=== PATIENT | male | born 1960 | race Caucasian/White ===

== ENCOUNTER 2020-06-12 06:45 | Observation (INO) ==
--- OUTSIDE RECORDS SUMMARY | 2020-06-12 06:47 | External Medical Summary | Continuity of Care Document ---
:1960 Author Name Wes Moss Address Unavailable Unavailable , Care Team Providers Name Role Phone Miky Moss Unavailable [email or web address] Luis ADAMS Unavailable Unavailable Unavailable Unavailable Unavailable Assessments Assessed Problems:Inguinal hernia Problems Inguinal hernia (550.90) (K40.90) Diabetes mellitus (250.00) (E11.9) Hypercholesterolemia (272.0) (E78.00) Allergies and Adverse Reactions Shellfish-derived Products (Allergy) Medications Aspirin 81 MG TABS; TAKE 1 TABLET DAILY. Start: 27-Jan-2013 Refills: 0 metFORMIN HCl ER (OSM) 500 MG Oral Table t Extended Release 24 Hour; TAKE 1 TABLET DAILY. Start: 27-Jan-2013 Refills: 0 Lipitor 10 MG Oral Tablet; TAKE 1 TABLET DAILY. Start: 27-Jan-2013 Refills: 0 Procedures History of Leg Repair Status: Completed History of Surgery Vas Deferens Vasectomy Status: Completed Immunizations Immunizations not documented Family History Unknown Family Member Family history of Hypertension (V17.49) Status: Active Comments: Family History Family history of Colon Cancer (V16.0) Status: Active C omments: Family History Family history of Cancer Status: Active Comments: Famil y History Family history of Diabetes Mellitus (V18.0) Status: Active Comments: Family History Social History - Smoking Status Never smoked tobacco Interventions Discussion/SummaryPost-opereative inguinal hernia(s). Doing well, no problems reported and the patient is satisifed. Follow up will be prn. Plan of Treatment Planned Observations Planned Goals not documented Results No Known Results Results not documented Encounters Appointment; Adrian Bolaños M.D. 17-Feb-2013 13:30 Encounter Diagnosis: Problem not documented
--- OUTSIDE RECORDS SUMMARY | 2020-06-12 06:48 | External Medical Summary | Continuity of Care Document ---
:1960 Author Name Wes Moss Address Unavailable Unavailable , Care Team Providers Name Role Phone Miky Moss [place]available [email or web address] [place] Unavailable Unavailable Unavailable Unavailable Unavailable Assessments Assessed Problems:Inguinal hernia Problems Inguinal hernia (550.90) (K40.90) Diabetes mellitus (250.00) (E11.9) Hypercholesterolemia (272.0) (E78.00) Allergies and Adverse Reactions Shellfish-derived Products (Allergy) Medications Lipitor 10 MG Oral Tablet; TAKE 1 TABLET DAILY. Start: 27-Jan-2013 Refills: 0 metFORMIN HCl ER (OSM) 500 MG Oral Table t Extended Release 24 Hour; TAKE 1 TABLET DAILY. Start: 27-Jan-2013 Refills: 0 Aspirin 81 MG TABS; TAKE 1 TABLET DAILY. Start: 27-Jan-2013 Refills: 0 Procedures History of Leg Repair Status: Completed History of Surgery Vas Deferens Vasectomy Status: Completed Immunizations Immunizations not documented Family History Unknown Family Member Family history of Diabetes Mellitus (V18.0) Status: Active Comments: Family History Family history of Cancer Status: Active Comments: Famil y History Family history of Colon Cancer (V16.0) Status: Active C omments: Family History Family history of Hypertension (V17.49) Status: Active Comments: Family History Social History [...]
[2020-06-12 07:25] LABS: Basophils # (auto) 0.01 K/uL (0-0.2); Basophils % (auto) 0.2 %; Eosinophils # (auto) 0.17 K/uL (0-0.5); Eosinophils % (auto) 2.8 %; Hematocrit (blood only) 45.3 % (42-52); Hemoglobin 14.8 g/dL (14.0-18.0); Lymphocytes % (auto) 25.1 %; Mean Corpuscular Hemoglobin 27.3 pg (25-34); Mean Corpuscular Hgb Conc 32.7 g/dL (32-36); Mean Corpuscular Volume 83.4 fL (80-100); Mean Platelet Volume 9.5 fL (7.4-10.4); Monocytes # (auto) 0.71 K/uL (0.11-0.59); Monocytes % (auto) 11.9 %; Neutrophils # (auto) 3.58 K/uL (1.4-6.5); Platelet Count 273 K/uL (130-400); RDW Coefficient of Variation 15.1 % (11.5-14.5); RDW Standard Deviation 46.3 fL (36.4-46.3); Red Blood Count 5.43 M/uL (4.7-6.1); White Blood Count 5.97 K/uL (4.8-10.8)
[2020-06-12] MEDS ORDERED: NITROGLYCERIN SL 0.4 MG/TAB TAB SL STA ×2 (07:26→08:36)
[2020-06-12] MEDS ORDERED: ASPIRIN 81 MG CHEW PO STA (07:26)
[2020-06-12] MEDS ORDERED: SODIUM CHLORIDE 0.9% 250 ML IV ONE (07:26)
--- NOTE | 2020-06-12 07:30 | XRay Report ---
SINGLE VIEW CHEST CLINICAL HISTORY: Atypical chest pain. FINDINGS: An AP, portable, upright chest radiograph is obtained. No prior studies are available for c omparison at the time of dictation. The heart is enlarged. The pulmonary vasculature is noncongested. Mild atelectasis is noted at the lung bases. No airspace consolidation or large pleural effusion is identified. No pneumothorax is seen. The bony thorax is grossly intact. IMPRESSION: Cardiac enlargement with no acute cardiopulmonary abnormality. ACT 112: Negative or not required by law. Electronically signed by: Tj Tavera M.D. 06/12/2020 7:29 AM
--- NOTE | 2020-06-12 07:36 | Emergency Department Note ---
History of Present Illness General Chief complaint: Chest Pain Stated complaint: CHEST PAIN,NUMBNESS IN LEFT ARM Time Seen by Provider: 06/12/20 07:09 Source: patient and family ( was at the bedside) Mode of arrival: ambulatory Limitations: no limitations History of Present Illness Maximum Pain Intensity: 6 This patient comes in complaining of chest pain that started overnight. It woke him up and he woke up this morning and still had it. Its central dull 4 out of 10. He did notice it hurt when he coughed but he is not been coughing much no fever chills no shortness of breath. His left arm felt slightly heavy at one point. Denies headache. He is not on any blood thinners he did take a baby aspirin 81 mg prior to arrival. He does a history of GERD but feels different he has had some belching and burping did take an antacid. No history of similar complaints. No known exposure to Covid. Home Medications Medication Instructions Recorded Confirmed Type empagliflozin [Jardiance] 10 mg PO DAILY 06/12/20 06/12/20 History omeprazole 20 mg PO DAILY 06/12/20 06/12/20 History oxybutynin chloride 10 mg PO DAILY 06/12/20 06/12/20 History rosuvastatin 5 mg PO DAILY 06/12/20 06/12/20 History tamsulosin 0.4 mg PO DAILY 06/12/20 06/12/20 History Allergies Allergy/AdvReac Type Severity Reaction Status Date / Time rofecoxib Allergy Intermediate Hives Verified 06/12/20 06:56 azithromycin Allergy Unknown unsure Verified 06/12/20 06:56 shrimp Allergy Unknown SEAFOOD = Verified 06/12/20 06:56 HIVES Past Med/Surg History Medical History BPH (benign prostatic hyperplasia) Dyslipidemia GERD (gastroesophageal reflux disease) Type 2 diabetes mellitus Surgical History History of laparoscopic cholecystectomy History of prostate biopsy History of vasectomy Family History Father Heart disease [place] x 5 Grandmother (Paternal) Heart disease Mother Cancer Social History Smoking Status: Never smoker Second Hand Exposure: Yes; Do You Dip or Chew Tobacco: No; Hx Alcohol Use: No Hx Substance Use: No Preferred Language: [place] Communication Ability: Effective Data Communications Software Consultant Required: No Beliefs That Will Affect Care: None Current Living Situation: Spouse current occupational status: employed current occupation: delivery supervisor at [employer] Feels Safe at Home: Yes Review of Systems A total of 10 systems reviewed and were otherwise negative Physical Exam Vital Signs Vital Signs - 24 hr 06/12/20 06:48 06/12/20 07:16 06/12/20 07:40 Temperature 36.1 C L Temperature Source Temporal Artery Scan Pulse Rate 71 93 H Pulse Rate from SpO2 Sensor 93 H Respiratory Rate 16 18 Respiratory Effort / Characteristics Non-Labored Spontaneous Respiratory Depth Normal Respiratory Pattern Regular Blood Pressure 146/102 H 135/86 Blood Pressure Mean 116 102 Blood Pressure Position Sitting Pulse Oximetry 100 97 93 Oxygen Delivery Method Room Air Room Air Sepsis Recent Fever Within 48 Hours No Sepsis New/Unexplained Change in Mental Status No Sepsis Action Taken by Nursing No Action Required 06/12/20 07:41 06/12/20 07:50 06/12/20 08:00 Temperature Temperature Source Pulse Rate 91 H 85 79 Pulse Rate from SpO2 Sensor 89 76 63 Respiratory Rate 14 19 18 Respiratory Effort / Characteristics Respiratory Depth Respiratory Pattern Blood Pressure 142/109 H 128/86 Blood Pressure Mean 120 100 Blood Pressure Position Pulse Oximetry 94 96 96 Oxygen Delivery Method Sepsis Recent Fever Within 48 Hours Sepsis New/Unexplained Change in Mental Status Sepsis Action Taken by Nursing 06/12/20 08:15 06/12/20 08:30 06/12/20 08:42 Temperature Temperature Source Pulse Rate 74 79 Pulse Rate from SpO2 Sensor 72 70 Respiratory Rate 18 20 Respiratory Effort / Characteristics Spontaneous Respiratory Depth Respiratory Pattern Blood Pressure 117/87 121/84 Blood Pressure Mean 97 96 Blood Pressure Position Pulse Oximetry 96 97 Oxygen Delivery Method Sepsis Recent Fever Within 48 Hours Sepsis New/Unexplained Change in Mental Status Sepsis Action Taken by Nursing 06/12/20 08:45 06/12/20 09:00 06/12/20 09:15 Temperature Temperature Source Pulse Rate 83 70 80 Pulse Rate from SpO2 Sensor 72 72 66 Respiratory Rate 18 18 18 Respiratory Effort / Characteristics Respiratory Depth Respiratory Pattern Blood Pressure 107/83 118/84 104/76 Blood Pressure Mean 91 95 85 Blood Pressure Position Pulse Oximetry 96 95 98 Oxygen Delivery Method Sepsis Recent Fever Within 48 Hours Sepsis New/Unexplained Change in Mental Status Sepsis Action Taken by Nursing 06/12/20 09:30 Temperature Temperature Source Pulse Rate 71 Pulse Rate from SpO2 Sensor 63 Respiratory Rate 19 Respiratory Effort / Characteristics Respiratory Depth Respiratory Pattern Blood Pressure 114/78 Blood Pressure Mean 90 Blood Pressure Position Pulse Oximetry 98 Oxygen Delivery Method Sepsis Recent Fever Within 48 Hours Sepsis New/Unexplained Change in Mental Status Sepsis Action Taken by Nursing General: Well developed well nourished middle-age male who in no acute distress, breathing comfortably on room air. Normal speech HEENT: Normal cephalic atraumatic. Pupils are equal round and reactive to light. Extraocular movements are intact. Oropharynx is pink with moist mucous membranes. No swelling of the mouth lips or tongue. Neck: Supple with a midline trachea. No meningeal signs or stiffness, no JVD or bruits. No Stridor. Chest: Clear to auscultation bilaterally. No wheezes or rhonchi. No increased work of breathing. Heart: Regular rate and rhythm without murmurs or gallops. Abdomen: Soft nontender, nondistended without rebound guarding or rigidity. Extremities: No cyanosis clubbing or edema. No calf tenderness or assymetry Spine/Back. Non tender to palpation. No CVA tenderness Skin: Good turgor without rashes. Neurologic exam: Cranial nerves two through 12 are intact. Motor and sensation are intact and symmetrical throughout. My computer was not working Course Administered Medications Insulin Aspart (Insulin Aspart 100 Units/Ml 3 Ml Pen) 0 units SC ACHS LEMUEL Stop: 07/12/20 12:14 Last Admin: 06/12/20 12:52 Dose: Not Given Documented by: [id number] Cosigned by: [id number] Discontinued Medications Aspirin (Aspirin 81 Mg Chew) 324 mg PO NOW STA Stop: 06/12/20 07:27 Last Admin: 06/12/20 07:38 Dose: 324 mg Documented by: [id number] Sodium Chloride (Nss) 250 mls @ 999 mls/hr IV .Q16M ONE Stop: 06/12/20 07:41 Last Infusion: 06/12/20 08:08 Dose: 0 mls/hr Documented by: [id number] Admin: 06/12/20 07:38 Dose: 999 mls/hr Documented by: [id number] Metoprolol Tartrate (Metoprolol Tartrate 25 Mg Tab) 25 mg PO NOW ONE Stop: 06/12/20 12:25 Last Admin: 06/12/20 12:51 Dose: 25 mg Documented by: [id number] Nitroglycerin (Nitroglycerin Sl 0.4 Mg/Tab Tab) 0.4 mg SL NOW STA Stop: 06/12/20 07:27 Last Admin: 06/12/20 07:38 Dose: 0.4 mg Documented by: [id number] Nitroglycerin (Nitroglycerin Sl 0.4 Mg/Tab Tab) 0.4 mg SL NOW STA Stop: 06/12/20 08:37 Last Admin: 06/12/20 08:45 Dose: 0.4 mg Documented by: [id number] Medical Decision Making Differential Diagnosis Acute coronary syndrome, arrhythmia, GERD, PE, CHF, infection, electrolyte or metabolic abnormality, aortic disease Medical Records Attestation: I reviewed the patient's medical records. Home Medications Current Medication List: was personally reviewed by me Laboratory Data Attestation: I reviewed the patient's lab results. Result diagrams: 06/12/20 07:09 06/12/20 07:09 Lab Results 06/12/20 06/12/20 06/12/20 Range/Units 07:09 07:09 07:09 WBC 5.97 (4.8-10.8) K/uL RBC 5.43 (4.7-6.1) M/uL Hgb 14.8 (14.0-18.0) g/dL Hct 45.3 (42-52) % MCV 83.4 (80-100) fL MCH 27.3 (25-34) pg MCHC 32.7 (32-36) g/dL RDW Std Deviation 46.3 (36.4-46.3) fL RDW Coeff of Silvano 15.1 H (11.5-14.5) % Plt Count 273 (130-400) K/uL MPV 9.5 (7.4-10.4) fL Immature Gran % (Auto) 0.0 % Neut % (Auto) 60.0 % Lymph % (Auto) 25.1 % [place] % (Auto) 11.9 % Eos % (Auto) 2.8 % Baso % (Auto) 0.2 % Neut # (Auto) 3.58 (1.4-6.5) K/uL Lymph # (Auto) 1.50 (1.2-3.4) K/uL [place] # (Auto) 0.71 H (0.11-0.59) K/uL Eos # (Auto) 0.17 (0-0.5) K/uL Baso # (Auto) 0.01 (0-0.2) K/uL Immature Gran # (Auto) 0.00 (0.00-0.02) K/uL PT (9.0-12.0) Seconds INR (0.9-1.1) APTT (21.0-31.0) Seconds PTT Ratio Sodium 140 (136-145) mmol/L Potassium 3.8 (3.5-5.1) mmol/L Chloride 108 H (98-107) mmol/L Carbon Dioxide 28 (21-32) mmol/L Anion Gap 4.0 (3-11) BUN 19 H (7-18) mg/dl Creatinine 1.19 (0.6-1.4) mg/dl Est Cr Clr Drug Dosing 84.2 ml/min Est GFR ( Amer) 76.0 Est GFR (Non-Af Amer) 65.5 BUN/Creatinine Ratio 15.7 (10-20) Glucose 118 H (70-99) mg/dl Calcium 8.5 (8.5-10.1) mg/dl Total Bilirubin 0.5 (0.2-1) mg/dl AST 13 L (15-37) U/L ALT 31 (12-78) U/L Alkaline Phosphatase 55 (45-117) U/L Troponin I < 0.015 (0-0.045) ng/ml Total Protein 8.2 (6.4-8.2) gm/dl Albumin 3.7 (3.4-5.0) gm/dl Globulin 4.5 H (2.5-4.0) gm/dl Albumin/Globulin Ratio 0.8 L (0.9-2) Lipase 122 (73-393) U/L Hepatitis C Ab Screen Neg (Neg) 06/12/20 Range/Units 07:44 WBC (4.8-10.8) K/uL RBC (4.7-6.1) M/uL Hgb (14.0-18.0) g/dL Hct (42-52) % MCV (80-100) fL MCH (25-34) pg MCHC (32-36) g/dL RDW Std Deviation (36.4-46.3) fL RDW Coeff of Silvano (11.5-14.5) % Plt Count (130-400) K/uL MPV (7.4-10.4) fL Immature Gran % (Auto) % Neut % (Auto) % Lymph % (Auto) % [place] % (Auto) % Eos % (Auto) % Baso % (Auto) % Neut # (Auto) (1.4-6.5) K/uL Lymph # (Auto) (1.2-3.4) K/uL [place] # (Auto) (0.11-0.59) K/uL Eos # (Auto) (0-0.5) K/uL Baso # (Auto) (0-0.2) K/uL Immature Gran # (Auto) (0.00-0.02) K/uL PT 10.3 (9.0-12.0) Seconds INR 1.0 (0.9-1.1) APTT 26.2 (21.0-31.0) Seconds PTT Ratio 1.0 Sodium (136-145) mmol/L Potassium (3.5-5.1) mmol/L Chloride (98-107) mmol/L Carbon Dioxide (21-32) mmol/L Anion Gap (3-11) BUN (7-18) mg/dl Creatinine (0.6-1.4) mg/dl Est Cr Clr Drug Dosing ml/min Est GFR ( Amer) Est GFR (Non-Af Amer) BUN/Creatinine Ratio (10-20) Glucose (70-99) mg/dl Calcium (8.5-10.1) mg/dl Total Bilirubin (0.2-1) mg/dl AST (15-37) U/L ALT (12-78) U/L Alkaline Phosphatase (45-117) U/L Troponin I (0-0.045) ng/ml Total Protein (6.4-8.2) gm/dl Albumin (3.4-5.0) gm/dl Globulin (2.5-4.0) gm/dl Albumin/Globulin Ratio (0.9-2) Lipase (73-393) U/L Hepatitis C Ab Screen (Neg) Imaging Data Attestation: I personally reviewed and interpreted this imaging study as follows: My Impression: Chest x-rayno acute infiltrate, failure, pneumothorax ECG Data Attestation: I personally reviewed and interpreted this ECG as follows: Indication: + chest pain Rate (beats per minute): 75 Rhythm: + normal sinus ECG Intervals/blocks: + Normal QRS, + Normal QT and + Normal MO ECG [place]: + Normal ECG ST segments: + Nonspecific ST abnormalities (Nonspecific T wave abnormality) ECG Findings: + PVCs; no PACs Comparison ECG Date: from (01/28/2013) Change: no significant change Additional Comments: EKG #2normal sinus rhythm at 79. PVCs. No acute ischemic changes. No significant change compared to EKG #1 MDM Narrative This patient comes in as described above. He is been having some chest pain. I V asked established EKG was obtained is placed on a certified coatings inspector in room C9. He was given aspirin 324 mg chewable we did try a nitroglycerin sublingual. Chest x-ray was obtained and shows no acute infiltrate, failure, pneumothorax. EKG is some nonspecific findings but no definite acute STEMI. He was given nitroglycerin sublingual as pain went from 4-1. Was given a second sublingual as pain went away completely. EKG x2 do not show an acute STEMI or any definite or dynamic changes. Chest x-ray does not show congestive heart failure, pneumonia,or pneumothorax. Troponin is not elevated. Is no acute electrolyte or metabolic abnormalities. He does have significant cardiac risk factors, including family history and I do think he needs to be admitted/observed for further cardiac work-up and evaluation. [facility] Continuous cardiac monitoring: Order was placed in EMR for continuous cardiac monitoring. The patient was noted to be in normal sinus rhythm with a pulse of 70 Impression & Plan Chest pain, Type 2 diabetes mellitus, Family history of coronary artery di sease, Lab test negative for COVID-19 virus Discharge Plan Visit Data Chief Complaint: Chest Pain Stated Complaint: CHEST PAIN,NUMBNESS IN LEFT ARM ED Provider: Oswaldo Pierson Discharge Problem: Chest pain, Type 2 diabetes mellitus, Family history of coronary artery disease, Lab test negative for COVID-19 virus Patient Disposition: Admitted As Inpatient Discharge Instructions Interventions: ED Discharge Assessment Last Done: 06/12/20 11:25 Discharge Problem: Chest pain Qualifiers: Chest pain type: precordial pain Qualified Code(s): R07.2 - Precordial pain Type 2 diabetes mellitus Qualifiers: Diabetes mellitus long term care phlebotomist insulin use: without long term care phlebotomist use Diabetes mellitus complication status: without complication Qualified Code(s): E11.9 - Type 2 diabetes mellitus without complications
[2020-06-12 07:42] LABS: Alanine Aminotransferase 31 U/L (12-78); Albumin Level 3.7 gm/dl (3.4-5.0); Aspartate Aminotransferase 13 U/L (15-37); BUN Creatinine Ratio 15.7 (10-20); Blood Urea Nitrogen 19 mg/dl (7-18); Calcium 8.5 mg/dl (8.5-10.1); Carbon Dioxide 28 mmol/L (21-32); Chloride 108 mmol/L (98-107); Creatinine Clr Calc Pharmacy 84.2 ml/min; Est GFR (Non-African American) 65.5; Glucose 118 mg/dl (70-99); Lipase 122 U/L (73-393); Potassium 3.8 mmol/L (3.5-5.1); Sodium 140 mmol/L (136-145)
[2020-06-12 07:47] LABS: Albumin Globulin Ratio 0.8 (0.9-2); Alkaline Phosphatase 55 U/L (45-117); Bilirubin,Total 0.5 mg/dl (0.2-1); Globulin 4.5 gm/dl (2.5-4.0); Total Protein 8.2 gm/dl (6.4-8.2); Troponin I < 0.015 ng/ml (0-0.045)
[2020-06-12 08:04] LABS: Partial Thromboplastin Time 26.2 Seconds (21.0-31.0); Prothrombin Time 10.3 Seconds (9.0-12.0)
--- NOTE | 2020-06-12 10:18 | History & Physical Report ---
Date of Service June 12, 2020 Assessment & Plan (1) Chest pain: Multiple risk factors for cardiac disease including family history, dyslipidemia and DM. Evolution of symptoms concerning for cardiac etiology - Spoke with cardiology - plan for cardiac cath later today - Trend troponin - Monitor on telemetry - Check ECHO - Continue prn nitro for chest pain - Repeat EKG if recurrent chest pain (2) Type 2 diabetes mellitus: - Hold oral meds - Insulin sliding scale - Check A1c in the AM - Diabetic diet once able to eat (3) GERD (gastroesophageal reflux disease): - Continue PPI therapy (4) BPH (benign prostatic hyperplasia): - Continue outpatient meds (5) Dyslipidemia: - Check lipid panel in AM - Increase Crestor to 10 mg daily - pt reports this has been discussed multiple times with PCP in the past but he has been unable to get an updated script. Pt seen and reviewed with collaborating physician, Dr. Rasmussen. Plan of care discussed and as outlined above. Code status: full code Tino Shaikh PA-C History of Present Illness Chief Complaint: Chest pain Primary Care Provider: Mahad Perez DO This is a 59 y/o male with PMH of dyslipidemia, GERD, BPH, and DM2 who presents to the ED with chest pain that started this morning. Pt reports feeling in his usual state of health last evening. At some point last night, he thinks that he woke up and noticed some chest discomfort but immediately fell back asleep so he is unsure of any other details. This morning he woke up around 5 am (his usual) and noted that he was having dull substernal chest pain without radiation. Associated pallor. Also noted some mild indigestion but took his omeprazole and felt better but the chest pain continued. This pain is different than prior episodes of GERD. In 1982, he reports that he had similar pain but it was attributed to stress. He did have a stress test in 2016 that was negative - thinks this was done prior to cholecystectomy. In the are on the way to the ED, he noted numbness in his left arm that has since resolved. He denies associated N/V, palpitations, dizziness, diaphoresis, shortness of breath or syncope. He received nitro x 2 doses in the ED with resolution of pain at present. He does note that he has now developed a LEDESMA. Exercise Echo 05/04/15 - negative for inducible ischemia, no arrhythmias. Normal HR and BP response to exercise. Average exercise tolerance. at rest, normal LV chamber size with mild concentric LVH. Normal LV systolic function without regional wall motion abnormality, EF 60-65%. Grade I diastolic dysfunction. No significant valvular pathology. Allergies Allergy/AdvReac Type Severity Reaction Status Date / Time rofecoxib Allergy Intermediate Hives Verified 06/12/20 06:56 azithromycin Allergy Unknown unsure Verified 06/12/20 06:56 shrimp Allergy Unknown SEAFOOD = Verified 06/12/20 06:56 HIVES Home Medications Medication Instructions Recorded Confirmed Type empagliflozin [Jardiance] 10 mg PO DAILY 06/12/20 06/12/20 History omeprazole 20 mg PO DAILY 06/12/20 06/12/20 History oxybutynin chloride 10 mg PO DAILY 06/12/20 06/12/20 History rosuvastatin 5 mg PO DAILY 06/12/20 06/12/20 History tamsulosin 0.4 mg PO DAILY 06/12/20 06/12/20 History Past Med/Surg History Medical History BPH (benign prostatic hyperplasia) Dyslipidemia GERD (gastroesophageal reflux disease) Type 2 diabetes mellitus Surgical History History of laparoscopic cholecystectomy History of prostate biopsy History of vasectomy Family History Father Heart disease [place] x 5 Grandmother (Paternal) Heart disease Mother Cancer Social History Smoking Status: Never smoker Second Hand Exposure: Yes; Do You Dip or Chew Tobacco: No; Hx Alcohol Use: No Hx Substance Use: No Preferred Language: Nigerien Communication Ability: Effective Fresh Meat Grader Required: No Beliefs That Will Affect Care: None Current Living Situation: Spouse current occupational status: employed current occupation: music therapist at [employer] Feels Safe at Home: Yes Review of Systems Review of Systems: All systems reviewed & are unremarkable except as noted in HPI & below Constitutional: no fever, no chills, no anorexia, no weight loss and no weight gain Eyes: no diplopia and no worsening vision Ear, Nose, Mouth, Throat: no sore throat and no dysphagia Respiratory: no cough, no chest congestion, no dyspnea on exertion and no wheezing Cardiovascular: as per Subjective / HPI; no dyspnea on exertion, no palpitations, no lightheadedness, no syncope and no edema Gastrointestinal: as per Subjective / HPI; no abdominal pain, no nausea, no vomiting, no diarrhea/loose stools and no blood in stools Genitourinary: no dysuria, no urinary frequency and no hematuria Musculoskeletal: no back pain, no neck pain and no muscle weakness Integumentary: no skin ulcer Neurologic: no paresthesia, no tremor(s), no seizure-like activity and no headache(s) Psychiatric: no depression and no anxiety Physical Exam Constitutional: well developed and well nourished; no acute distress Eyes: + anicteric sclerae; no conjunctival abnormality Neck: trachea midline Respiratory: no respiratory distress and no labored breathing Auscultation: lungs clear to auscultation bilaterally; no rales, no rhonchi and no wheezes Cardiovascular: Rate/Rhythm: regular rate and regular rhythm (occasional ectopic beat) Heart Sounds: no gallop, no murmur and no cardiac rub Vessels: posterior tibial pulses present and radial pulses present; no carotid bruit Extremities: no calf tenderness and no edema Gastrointestinal (Abdomen): Inspection/Auscultation: normal bowel sounds; abdomen not distended Percussion/Palpation: abdomen soft; abdomen nontender Musculoskeletal: Head/Neck/Chest: normocephalic, head atraumatic and neck supple; no chest tenderness Extremities: no cyanosis and no clubbing Skin: no rashes, warm and dry no jaundice Neurologic: no focal motor deficits Motor/Sensory: no tremor Psychiatric: A+Ox3, euthymic affect Results & Data Results & Data ([facility]) Vital Signs (Past 12 Hours) Vital Signs Temp Pulse Resp BP Pulse Ox 06/12/20 09:45 72 18 131/81 99 06/12/20 09:30 71 19 114/78 98 06/12/20 09:15 80 18 104/76 98 06/12/20 09:00 70 18 118/84 95 06/12/20 08:45 83 18 107/83 96 06/12/20 08:30 79 20 121/84 97 06/12/20 08:15 74 18 117/87 96 06/12/20 08:00 79 18 128/86 96 06/12/20 07:50 85 19 142/109 H 96 06/12/20 07:41 91 H 14 94 06/12/20 07:40 93 H 18 135/86 93 06/12/20 07:16 97 06/12/20 06:48 36.1 C L 71 16 146/102 H 100 Laboratory Results Laboratory Results - last 24 hr 06/12/20 06/12/20 06/12/20 07:09 07:09 07:44 WBC 5.97 RBC 5.43 Hgb 14.8 Hct 45.3 MCV 83.4 MCH 27.3 MCHC 32.7 RDW Std Deviation 46.3 RDW Coeff of Silvano 15.1 H Plt Count 273 MPV 9.5 Immature Gran % (Auto) 0.0 Neut % (Auto) 60.0 Lymph % (Auto) 25.1 [place] % (Auto) 11.9 Eos % (Auto) 2.8 Baso % (Auto) 0.2 Neut # (Auto) 3.58 Lymph # (Auto) 1.50 [place] # (Auto) 0.71 H Eos # (Auto) 0.17 Baso # (Auto) 0.01 Immature Gran # (Auto) 0.00 PT 10.3 INR 1.0 APTT 26.2 PTT Ratio 1.0 Sodium 140 Potassium 3.8 Chloride 108 H Carbon Dioxide 28 Anion Gap 4.0 BUN 19 H Creatinine 1.19 Est Cr Clr Drug Dosing 84.2 Est GFR ( Amer) 76.0 Est GFR (Non-Af Amer) 65.5 BUN/Creatinine Ratio 15.7 Glucose 118 H Calcium 8.5 Total Bilirubin 0.5 AST 13 L ALT 31 Alkaline Phosphatase 55 Troponin I < 0.015 Total Protein 8.2 Albumin 3.7 Globulin 4.5 H Albumin/Globulin Ratio 0.8 L Lipase 122 COVID-19 Eval Order SARS-CoV-2, RNA, NAAT 06/12/20 06/12/20 09:48 09:48 WBC RBC Hgb Hct MCV MCH MCHC RDW Std Deviation RDW Coeff of Silvano Plt Count MPV Immature Gran % (Auto) Neut % (Auto) Lymph % (Auto) [place] % (Auto) Eos % (Auto) Baso % (Auto) Neut # (Auto) Lymph # (Auto) [place] # (Auto) Eos # (Auto) Baso # (Auto) Immature Gran # (Auto) PT INR APTT PTT Ratio Sodium Potassium Chloride Carbon Dioxide Anion Gap BUN Creatinine Est Cr Clr Drug Dosing Est GFR ( Amer) Est GFR (Non-Af Amer) BUN/Creatinine Ratio Glucose Calcium Total Bilirubin AST ALT Alkaline Phosphatase Troponin I Total Protein Albumin Globulin Albumin/Globulin Ratio Lipase COVID[facility]19 [facility] SARS-CoV-2, RNA, NAAT NEGATIVE Diagnostic Findings Chest X-ray 06/12/20 - IMPRESSION: Cardiac enlargement with no acute cardiopulmonary abnormality. Medications Administered Discontinued Medications Aspirin (Aspirin 81 Mg Chew) 324 mg PO NOW STA Stop: 06/12/20 07:27 Last Admin: 06/12/20 07:38 Dose: 324 mg Documented by: [id number] Sodium Chloride (Nss) 250 mls @ 999 mls/hr IV .Q16M ONE Stop: 06/12/20 07:41 Last Infusion: 06/12/20 08:08 Dose: 0 mls/hr Documented by: [id number] Admin: 06/12/20 07:38 Dose: 999 mls/hr Documented by: [id number] Nitroglycerin (Nitroglycerin Sl 0.4 Mg/Tab Tab) 0.4 mg SL NOW STA Stop: 06/12/20 07:27 Last Admin: 06/12/20 07:38 Dose: 0.4 mg Documented by: [id number] Nitroglycerin (Nitroglycerin Sl 0.4 Mg/Tab Tab) 0.4 mg SL NOW STA Stop: 06/12/20 08:37 Last Admin: 06/12/20 08:45 Dose: 0.4 mg Documented by: [id number] Code Status & VTE Plan VTE Prophylaxis Plan VTE Prophylaxis will be ordered: Yes Supervising Physician Co-Signing Physician Notes Pt was seen and examined. Agreed with Aleksandr SOTO exam, assessment and plan. 59 y/o male with PMH of dyslipidemia, GERD, BPH, and DM2 who presents to the ED with chest pain. Pt said that shest pain woke him up this morning. Described chest pain as dull, located in the substernal chest and non radiating. He said that he noted numbness in his left arm. Relieved in the emergency room after receiving 2 sublingual nitroglycerin and aspirin. He had cardiac cath done today via right radial access today with good tolerance that demonstrated right dominant normal coronary anatomy and no obstruction. Echo showed left ventricular is normal in size, mild concentric left ventricular hypertrophy. There is a very mild hypokinesis of the inferior inferoseptal and posterior wall at the base and mid level. Left ventricular systolic function is normal. ejection fraction 55 to 60. Currently denies any chest pain, palpitation, dizziness and SOB. Okay from cardiology standpoint to discharge home later today after 8 PM if patient remains stable. MD Grady (1) Type 2 diabetes mellitus Diabetes mellitus complication status: without complication Diabetes mellitus terminal supervisor insulin use: without terminal supervisor use Qualified Code(s): E11.9 - Type 2 diabetes mellitus without complications (2) Chest pain Chest pain type: precordial pain Qualified Code(s): R07.2 - Precordial pain
[2020-06-12] MEDS ORDERED: GLUCAGON FOR INJ 1 MG VIAL SQ PRN (12:15)
[2020-06-12] MEDS ORDERED: DEXTROSE 50% 50 ML SYRINGE IV PRN (12:15)
[2020-06-12] MEDS ORDERED: CARBOHYDRATES FOR HYPOGLYCEMIA PO PRN (12:15)
[2020-06-12] MEDS ORDERED: NITROGLYCERIN SL 0.4 MG/TAB TAB SL PRN (12:15)
[2020-06-12] MEDS ORDERED: ACETAMINOPHEN 325 MG TAB PO PRN ×2 (12:15→16:04)
[2020-06-12] MEDS ORDERED: GLUCOSE 40% GEL 15 GM TUBE PO PRN (12:15)
[2020-06-12] MEDS ORDERED: GLUCOSE 10 TABS/TUBE PO PRN (12:15)
--- NOTE | 2020-06-12 12:21 | Cardiology Consultation ---
Date of Consultation June 12, 2020 Assessment & Plan (1) Anginal chest pain at rest: Patient is a 59-year-old male with multiple cardiac risk factors including age gender strong family history hyperlipidemia and diabetes mellitus who presents with concerning symptoms of chest pressure radiating to his left arm arousing from sleep. Symptoms relieved with aspirin and sublingual nitroglycerin. Initial troponin and EKGs without acute injury pattern but symptoms at rest concerning. Discussed the findings in detail with the patient recommended proceeding with diagnostic cardiac catheterization later today. Patient agreeable We will begin beta-thanh, hydration (2) Dyslipidemia: (3) Type 2 diabetes mellitus: History of Present Illness Reason for Consultation: Acute chest pain Requesting Physician: Dr. Rasmussen Attending Physician: Bib Rasmussen MD History of Present Illness Patient is a 59-year-old male with history is notable for diabetes mellitus hyperlipidemia and strong family history of coronary artery disease who presents now noting having awakened from sleep with chest discomfort earlier today. Symptoms have been persistent but relieved in the emergency room with 2 sublingual nitroglycerin and aspirin. Patient currently now comfortable. No prior history of myocardial infarction angina congestive heart failure. No history rheumatic fever scarlet fever TIA or stroke. No bleeding difficulties. No melena medication dysuria hematuria. No prior history of fevers chills or unexplained infections. Appetite and weight have been generally stable. He is relatively sedentary, works as a chef manager. Non-smoker nondrinker Allergies Allergy/AdvReac Type Severity Reaction Status Date / Time rofecoxib Allergy Intermediate Hives Verified 06/12/20 06:56 azithromycin Allergy Unknown unsure Verified 06/12/20 06:56 shrimp Allergy Unknown SEAFOOD = Verified 06/12/20 06:56 HIVES Home Medications Medication Instructions Recorded Confirmed Type empagliflozin [Jardiance] 10 mg PO DAILY 06/12/20 06/12/20 History omeprazole 20 mg PO DAILY 06/12/20 06/12/20 History oxybutynin chloride 10 mg PO DAILY 06/12/20 06/12/20 History rosuvastatin 5 mg PO DAILY 06/12/20 06/12/20 History tamsulosin 0.4 mg PO DAILY 06/12/20 06/12/20 History Patient History Medical History BPH (benign prostatic hyperplasia) Dyslipidemia GERD (gastroesophageal reflux disease) Type 2 diabetes mellitus Surgical History History of laparoscopic cholecystectomy History of prostate biopsy History of vasectomy Family History Father Heart disease [place] x 5 Grandmother (Paternal) Heart disease Mother Cancer Social History Smoking Status: Never smoker Second Hand Exposure: Yes; Do You Dip or Chew Tobacco: No; Hx Alcohol Use: No Hx Substance Use: No Preferred Language: Bulgarian Communication Ability: Effective Apricot Washer Required: No Beliefs That Will Affect Care: None Current Living Situation: Spouse current occupational status: employed current occupation: chef manager at [employer] Feels Safe at Home: Yes Review of Systems Review of Systems: All systems reviewed & are unremarkable except as noted in HPI & below Physical Exam Constitutional: + obese; no acute distress Eyes: PERRL, conjunctivae normal, anicteric sclerae ENMT: external ear and nose normal, oropharynx normal Neck: trachea midline, no thyromegaly Respiratory: normal respiratory effort, lungs clear to auscultation Cardiovascular: Rate/Rhythm: regular rate and regular rhythm Heart Sounds: normal S1 and normal S2; no gallop and no murmur Palpation: normal PMI Vessels: normal carotid upstroke and radial pulses present; no JVD and no carotid bruit Extremities: no edema Gastrointestinal (Abdomen): normal bowel sounds, soft, nontender, no hepatosplenomegaly Musculoskeletal: no cyanosis or clubbing, extremities motor strength 5/5 Skin: no rashes, warm and dry Neurologic: PERRL, EOMI, accommodation nl, no face palsy, no dysarthria Psychiatric: A+Ox3, euthymic affect Results & Data ([facility]) Vital Signs (Past 12 Hours) Vital Signs Temp Pulse Resp BP Pulse Ox 06/12/20 11:15 78 18 128/88 97 06/12/20 11:04 83 18 110/78 97 06/12/20 10:30 136/80 06/12/20 10:15 71 18 133/91 99 06/12/20 10:00 70 18 132/83 98 06/12/20 09:45 72 18 131/81 99 06/12/20 09:30 71 19 114/78 98 06/12/20 09:15 80 18 104/76 98 06/12/20 09:00 70 18 118/84 95 06/12/20 08:45 83 18 107/83 96 06/12/20 08:30 79 20 121/84 97 06/12/20 08:15 74 18 117/87 96 06/12/20 08:00 79 18 128/86 96 06/12/20 07:50 85 19 142/109 H 96 06/12/20 07:41 91 H 14 94 06/12/20 07:40 93 H 18 135/86 93 06/12/20 07:16 97 06/12/20 06:48 36.1 C L 71 16 146/102 H 100 Laboratory Results Laboratory Results - last 24 hr 06/12/20 06/12/20 06/12/20 07:09 07:09 07:44 WBC 5.97 RBC 5.43 Hgb 14.8 Hct 45.3 MCV 83.4 MCH 27.3 MCHC 32.7 RDW Std Deviation 46.3 RDW Coeff of Silvano 15.1 H Plt Count 273 MPV 9.5 Immature Gran % (Auto) 0.0 Neut % (Auto) 60.0 Lymph % (Auto) 25.1 [place] % (Auto) 11.9 Eos % (Auto) 2.8 Baso % (Auto) 0.2 Neut # (Auto) 3.58 Lymph # (Auto) 1.50 [place] # (Auto) 0.71 H Eos # (Auto) 0.17 Baso # (Auto) 0.01 Immature Gran # (Auto) 0.00 PT 10.3 INR 1.0 APTT 26.2 PTT Ratio 1.0 Sodium 140 Potassium 3.8 Chloride 108 H Carbon Dioxide 28 Anion Gap 4.0 BUN 19 H Creatinine 1.19 Est Cr Clr Drug Dosing 84.2 Est GFR ( Amer) 76.0 Est GFR (Non-Af Amer) 65.5 BUN/Creatinine Ratio 15.7 Glucose 118 H Calcium 8.5 Total Bilirubin 0.5 AST 13 L ALT 31 Alkaline Phosphatase 55 Troponin I < 0.015 Total Protein 8.2 Albumin 3.7 Globulin 4.5 H Albumin/Globulin Ratio 0.8 L Lipase 122 COVID-19 Eval Order SARS-CoV-2, RNA, NAAT 06/12/20 06/12/20 09:48 09:48 WBC RBC Hgb Hct MCV MCH MCHC RDW Std Deviation RDW Coeff of Silvano Plt Count MPV Immature Gran % (Auto) Neut % (Auto) Lymph % (Auto) [place] % (Auto) Eos % (Auto) Baso % (Auto) Neut # (Auto) Lymph # (Auto) [place] # (Auto) Eos # (Auto) Baso # (Auto) Immature Gran # (Auto) PT INR APTT PTT Ratio Sodium Potassium Chloride Carbon Dioxide Anion Gap BUN Creatinine Est Cr Clr Drug Dosing Est GFR ( Amer) Est GFR (Non-Af Amer) BUN/Creatinine Ratio Glucose Calcium Total Bilirubin AST ALT Alkaline Phosphatase Troponin I Total Protein Albumin Globulin Albumin/Globulin Ratio Lipase COVID-19 Eval [facility] SARS-CoV-2, RNA, NAAT NEGATIVE Diagnostic Findings Chest x-ray: Mild increase in cardiac silhouette. No infiltrate or edema Echocardiogram 06/12/2020: Mild left hypertrophy with normal left her size. There is subtle hypokinesis of the inferior posterior wall and inferoseptal the base and mid level. No significant valvular (1) Type 2 diabetes mellitus Diabetes mellitus complication status: without complication Diabetes mellitus skilled nursing insulin use: without skilled nursing use Qualified Code(s): E11.9 - Type 2 diabetes mellitus without complications
[2020-06-12] MEDS ORDERED: METOPROLOL TARTRATE 25 MG TAB PO ONE (12:24)
[2020-06-12] MEDS: INSULIN ASPART 100 UNITS/ML 3 ML PEN SC SCH ×2 (12:52→17:27)
--- NOTE | 2020-06-12 14:30 | Pre Anesthesia Assessment ---
Date of Service June 12, 2020 Pre Sedation Assessment Vital Signs Temp Pulse Resp BP BP Pulse Ox 06/12/20 13:10 36.8 C 16 130/76 96 06/12/20 12:30 67 14 06/12/20 12:21 36.8 C 130/76 98 06/12/20 12:00 67 12 95 06/12/20 11:55 69 21 95 06/12/20 11:15 78 18 128/88 97 06/12/20 11:04 83 18 110/78 97 06/12/20 10:30 136/80 06/12/20 10:15 71 18 133/91 99 06/12/20 10:00 70 18 132/83 98 06/12/20 09:45 72 18 131/81 99 06/12/20 09:30 71 19 114/78 98 06/12/20 09:15 80 18 104/76 98 06/12/20 09:00 70 18 118/84 95 06/12/20 08:45 83 18 107/83 96 06/12/20 08:30 79 20 121/84 97 06/12/20 08:15 74 18 117/87 96 06/12/20 08:00 79 18 128/86 96 06/12/20 07:50 85 19 142/109 H 96 06/12/20 07:41 91 H 14 94 06/12/20 07:40 93 H 18 135/86 93 06/12/20 07:16 97 06/12/20 06:48 36.1 C L 71 16 146/102 H 100 Cardiovascular RRR, no murmur, no edema Respiratory normal respiratory effort, lungs clear to auscultation Pre-Sedation Airway Assessment Smoking Status: Never smoker Mallampati Class: III Procedure Planning Contraindications for Sedation: none Current Medications Reviewed: Yes Notes The planned sedation has been discussed with the patient. Informed Consent was obtained. I have identified the patient, determined the appropriateness of sedation and have assessed the patient immediately prior to the procedure. All medicine(s) and interventions are by my order.
[2020-06-12] MEDS ORDERED: HEPARIN (PORCINE) 1000 UNIT/ML 10 ML (CATH LAB USE ONLY) ONE (15:07)
[2020-06-12] MEDS ORDERED: NITROGLYCERIN/D5W 100MCG/ML 20ML SYR ONE (15:07)
[2020-06-12] MEDS ORDERED: fentaNYL citrate 100 MCG/2 ML VIAL ONE (15:07)
[2020-06-12] MEDS ORDERED: MIDAZOLAM HCL 1 MG/ML 2ML VIAL ONE (15:07)
[2020-06-12] MEDS ORDERED: niCARdipine HCL INJ 2.5 MG/ML 10 ML AMP ONE (15:07)
[2020-06-12] MEDS ORDERED: SODIUM CHLORIDE 0.9% 500 ML IV PRN (16:04)
[2020-06-12] MEDS ORDERED: SODIUM CHLORIDE 0.9% 1000ML 1,000 ML IV SCH (16:15)
--- NOTE | 2020-06-12 16:21 | Cardiac Catheterization ---
Cardiac Cath Procedure Full Procedure Date June 12, 2020 Pre-Procedure Diagnosis Pre-Procedure Diagnosis: Angina AUC Score AUC Score: 8 Post-Procedure Diagnosis Post-Procedure Diagnosis: Normal Coronary Arteries Procedure(s) Performed Procedure(s) Performed: Coronary Angiography, Left Heart Cath and LV Angiography Audograph Operator Kendall Cotton MD Diesel Dinkey Operator(s) Kei Bonilla Estimated Blood Loss Estimated Blood Loss: <15cc Medication(s) Medication(s): Fentanyl (5 mcg IV), Heparin (5000 units IV), Lidocaine 1% (Local infiltration access site), Nicardipine (250 mcg intra-arterial after arterial sheath insertion) and Versed (1 mg IV) Summary of Findings Impression: Large caliber left dominant coronary anatomy without obstruction or disease Left ventricular ejection fraction 5055% Mildly elevated left end-diastolic pressure Coronary angiography: Left dominant coronary anatomy Left main: Long and free of disease it trifurcates to give rise to the left anterior descending a large ramus intermedius and the left circumflex. Left anterior descending: Type III in distribution giving rise to 3 moderate caliber diagonal branches in its mid and apical third. There is no disease in the left anterior descending Left circumflex: Large and dominant distribution giving rise to a large obtuse m arginal, 2 posterior lateral branches and the left-sided posterior descending artery. Ramus intermedius/high marginal: Large caliber vessel reaching the apex and free of disease Right coronary artery: Nondominant consisting of 2 large right ventricular branches with a conus and sinoatrial branch at its origin Left ventricular angiography: Normal wall motion EF 50-55% with ventricular ectopy during procedure Hemodynamics Rest Ao:: 139/86/109 Final Ao: 155/86/114 LV: 158/8/19 Recommendations Recommendations: Medical Therapy and/or Counseling Specimens Specimens: None Radiation Exposure (mGy) 1116 Contrast (mls) 117 Fluids (cc crystalloids) Fluids (cc crystalloids): 79 Anesthesia Start time: 1533, stop time: 1600 Procedural Complication(s) None Disposition Baccarat Manager Holding/Recovery I attest to the content of the Intraoperative Record and any orders documented therein. Any exceptions are noted below. ACC Data: Baccarat Manager Cardiac Status Clinical evaluation leading to the procedure 59-year-old male with multiple cardiovascular risk factors including diabetes mellitus and strong family history of premature coronary disease presented to emergency room with rest chest pain awakening from sleep relieved by aspirin and sublingual nitroglycerin. Initial ischemic work-up negative symptom pattern very concerning CAD Presenation: Unstable angina Anginal Classification: CCS IV Cardiogenic Shock within 24 Hours: No Cardiac Arrest within 24 Hours: No Imaging Studies Past 6 Months: Yes Stress Studies Past 6 Months: No Standard Exercise Test: No Stress Echocardiogram: No Stress Testing w/SPECT MPI: No Cardiac CTA: No Coronary Anatomy Dominant: Left Left Main (% Stenosis): Normal LAD (% Stenosis): Normal D1 (% Stenosis): Normal D2 (% Stenosis): Normal D3 (% Stenosis): Normal Circumflex (% Stenosis): Normal OM1 (% Stenosis): Normal L PL1 (% Stenosis): Normal L PL2 (% Stenosis): Normal L PDA (% Stenosis): Normal R PDA (% Stenosis): Normal (Nondominant vessel with 2 right ventricular branches) Ramus (% Stenosis): Normal (Large vessel) Diagnostic Physicians Name: Kendall Cotton MD Closure Device Recommendations: Medical Therapy and/or Counseling
--- NOTE | 2020-06-12 17:12 | Communication Note ---
Date of Service: June 12, 2020 Patient underwent diagnostic coronary angiography via right radial access today with good tolerance. Study demonstrated right dominant normal coronary anatomy and no obstruction. Systolic hypertension and chronic ventricular ectopy observed during the case. Mild elevation left end-diastolic pressure. Recommendations: Would add VISHAL inhibitor to usual medical regimen. Stable for discharge from cardiac standpoint after observation
[2020-06-13] MEDS ORDERED: SODIUM CHLORIDE 0.9% 1000ML 1,000 ML IV SCH
--- NOTE | 2020-06-13 05:58 | Electrocardiogram Report ---
Test Reason : Blood Pressure : / mmHG Vent. Rate : 075 BPM Atrial Rate : 075 BPM P-R Int : 158 ms QRS Dur : 096 ms QT Int : 408 ms P-R-T Axes : 056 -22 -24 degrees QTc Int : 455 ms Sinus rhythm with Premature ventricular complexes Nonspecific ST and T wave abnormality Abnormal ECG When compared with ECG of 28-JAN-2013 11:19, Premature ventricular complexes are now Present Confirmed by Gregorio Adams ([id number]) on 06/13/2020 5:57:31 AM Referred By: Confirmed By:Gregorio Adams
--- NOTE | 2020-06-13 06:11 | Electrocardiogram Report ---
Test Reason : Blood Pressure : / mmHG Vent. Rate : 079 BPM Atrial Rate : 079 BPM P-R Int : 164 ms QRS Dur : 092 ms QT Int : 424 ms P-R-T Axes : 047 -23 -14 degrees QTc Int : 486 ms Sinus rhythm with Premature ventricular complexes Nonspecific T wave abnormality Prolonged QT Abnormal ECG When compared with ECG of 12-JUN-2020 06:57, No significant change was found Confirmed by Gregorio Adams ([id number]) on 06/13/2020 6:11:19 AM Referred By: REFERRED SELF Confirmed By:Gregorio Adams
[2020-06-13] MEDS ORDERED: PANTOprazole 40 MG TAB PO SCH (09:00)
[2020-06-13] MEDS ORDERED: ROSUVASTATIN CALCIUM 10 MG TAB PO SCH (09:00)
[2020-06-13] MEDS ORDERED: OXYBUTYNIN CHLORIDE XL 5 MG TABCR PO SCH (09:00)
[2020-06-13] MEDS ORDERED: TAMSULOSIN HCL 0.4 MG CAP PO SCH (09:00)
--- NOTE | 2020-06-26 23:58 | Discharge Summary ---
Date of Service June 12, 2020 Admission HPI Per Admitting Provider This is a 59 y/o male with PMH of dyslipidemia, GERD, BPH, and DM2 who presents to the ED with chest pain that started this morning. Pt reports feeling in his usual state of health last evening. At some point last night, he thinks that he woke up and noticed some chest discomfort but immediately fell back asleep so he is unsure of any other details. This morning he woke up around 5 am (his usual) and noted that he was having dull substernal chest pain without radiation. Associated pallor. Also noted some mild indigestion but took his omeprazole and felt better but the chest pain continued. This pain is different than prior episodes of GERD. In 1981, he reports that he had similar pain but it was attributed to stress. He did have a stress test in 2015 that was negative - thinks this was done prior to cholecystectomy. In the are on the way to the ED, he noted numbness in his left arm that has since resolved. He denies associated N/V, palpitations, dizziness, diaphoresis, shortness of breath or syncope. He received nitro x 2 doses in the ED with resolution of pain at present. He does note that he has now developed a LEDESMA. Exercise Echo 05/04/15 - negative for inducible ischemia, no arrhythmias. Normal HR and BP response to exercise. Average exercise tolerance. at rest, normal LV chamber size with mild concentric LVH. Normal LV systolic function without regional wall motion abnormality, EF 60-65%. Grade I diastolic dysfunction. No significant valvular pathology. Admission Exam Per Admitting Provider Constitutional: well developed and well nourished; no acute distress Eyes: + anicteric sclerae; no conjunctival abnormality Neck: trachea midline Respiratory: no respiratory distress and no labored breathing Auscultation: lungs clear to auscultation bilaterally; no rales, no rhonchi and no wheezes Cardiovascular: Rate/Rhythm: regular rate and regular rhythm (occasional ectopic beat) Heart Sounds: no gallop, no murmur and no cardiac rub Vessels: posterior tibial pulses present and radial pulses present; no carotid bruit Extremities: no calf tenderness and no edema Gastrointestinal (Abdomen): Inspection/Auscultation: normal bowel sounds; abdomen not distended Percussion/Palpation: abdomen soft; abdomen nontender Musculoskeletal: Head/Neck/Chest: normocephalic, head atraumatic and neck supple; no chest tenderness Extremities: no cyanosis and no clubbing Skin: no rashes, warm and dry no jaundice Neurologic: no focal motor deficits Motor/Sensory: no tremor Psychiatric: A+Ox3, euthymic affect Principal Diagnosis Chest pain Discharge Exam General- No acute distress Head- atraumatic Eyes- PERRL, EOMI, ENT- oropharynx clear Neck- supple, no JVD Lungs- clear to auscultation Heart- regular rhythm; no murmur Abdomen- normal bowel sounds, soft, nontender Extremities- no calf tenderness, right radial with no hematoma Neuro- alert, oriented x 3; PERRL, EOMI; no facial palsy; no dysarthria Skin- warm & dry Discharge Data Allergies Allergy/AdvReac Type Severity Reaction Status Date / Time rofecoxib Allergy Intermediate Hives Verified 06/12/20 06:56 azithromycin Allergy Unknown unsure Verified 06/12/20 06:56 shrimp Allergy Unknown SEAFOOD = Verified 06/12/20 06:56 HIVES Consultations 06/12/20 09:14 ED Decision to Admit Stat 06/12/20 10:41 Consult Cardiology Routine Procedures Performed Operation Date: 06/12/20 12:30 Actual Procedures p Cath, Left with Cors and Vent - Kendall Cotton MD s Cineradiography w/Routine Exam - Kendall Cotton MD SINGLE VIEW CHEST CLINICAL HISTORY: Atypical chest pain. FINDINGS: An AP, portable, upright chest radiograph is obtained. No prior studies are available for comparison at the time of dictation. The heart is enlarged. The pulmonary vasculature is noncongested. Mild atelectasis is noted at the lung bases. No airspace consolidation or large pleural effusion is identified. No pneumothorax is seen. The bony thorax is grossly intact. IMPRESSION: Cardiac enlargement with no acute cardiopulmonary abnormality. ACT 112: Negative or not required by law. Electronically signed by: Tj Tavera M.D. 06/12/2020 7:29 AM Dictated: 06/12/20727Transcribed: 06/12/20 07 Ordered Studies 06/12/20 15:06 CL Cath Imgs for PACS use only Stat SINGLE VIEW CHEST CLINICAL HISTORY: Atypical chest pain. FINDINGS: An AP, portable, upright chest radiograph is obtained. No prior studies are available for comparison at the time of dictation. The heart is enlarged. The pulmonary vasculature is noncongested. Mild atelectasis is noted at the lung bases. No airspace consolidation or large pleural effusion is identified. No pneumothorax is seen. The bony thorax is grossly intact. IMPRESSION: Cardiac enlargement with no acute cardiopulmonary abnormality. ACT 112: Negative or not required by law. Electronically signed by: Tj Tavera M.D. 06/12/2020 7:29 AM Dictated: 06/12/20727Transcribed: 06/12/20727 Hospital Course (1) Chest pain: 59 y/o male with PMH of dyslipidemia, GERD, BPH, and DM2 who presents to the ED with chest pain. Pt said that shest pain woke him up this morning. Described chest pain as dull, located in the substernal chest and non radiating. He said that he noted numbness in his left arm. Chest pain relieved in the emergency room after receiving 2 sublingual nitroglycerin and aspirin. S/P cardiac cath done via right radial access today with good tolerance that demonstrated right dominant normal coronary anatomy and no obstruction. Echo showed left ventricular is normal in size, mild concentric left ventricular hypertrophy. There is a very mild hypokinesis of the inferior inferoseptal and posterior wall at the base and mid level. Left ventricular systolic function is normal. ejection fraction 55 to 60. Currently denies any chest pain, palpitation, dizziness and SOB. Okay from cardiology standpoint to discharge home later today after 8 PM if patient remains stable. Follow up with PCP within 1 week. Pt was given instructions for post cardiac cath Total Time Total Time Spent Total Time Spent (In Minutes): 35 minutes Total Time Includes: Examination of the Patient, Discharge Planning, Medication Reconciliation, Communication With Other Providers and Other Discharge Plan Discharge Items Patient Disposition: Home - Self-Care Reason For Visit: CHEST PAIN,NUMBNESS IN LEFT ARM Discharge Diagnosis: Chest pain Activity: Resume your previous activity Non-emergency contact: Primary Care Provider Call non-emergency contact if: you have any medication questions Follow-up/Referrals: Mahad Perez DO [Primary Care Provider] - Diet: Carb Consistent or DM2 Addtl Attending Provider Instructions: Follow up with your primary care provider Dr. Perez in 1 week (please call to schedule for the appointment) Continue monitor your blood pressure Check BMP in 1 week to monitor your electrolytes and renal function since starting on Lisinopril Continue monitor your blood sugar and follow a healthy diabetes diet Keep the area for the cardiac cath clean and dry to avoid any infection Do not use creams, lotions or ointment on the wound site Do not take a bath, tub soak, go in a Jacuzzi, or swim in a pool or argueta for one week after the procedure. Do not participate in strenuous activities for 3 days after the procedure. Gradually increase your activities until you reach your normal activity level within two days after the procedure. Avoid heavy lifting (more than 10 pounds) and pushing or pulling heavy objects for the first 5 days after the procedure. Pending Studies at Discharge: No Stand-Alone Forms: [facility] [employer], Work/School Release (Inpt), Smoking Cessation Medications and DC Order Prescriptions: New lisinopril 5 mg tablet 5 mg PO DAILY Qty: 30 RF: 0 Continued oxybutynin chloride 10 mg tablet extended release 24hr 10 mg PO DAILY RF: 0 tamsulosin 0.4 mg capsule 0.4 mg PO DAILY RF: 0 omeprazole 20 mg capsule,delayed release(DR/EC) 20 mg PO DAILY RF: 0 Jardiance 10 mg tablet 10 mg PO DAILY RF: 0 rosuvastatin 5 mg tablet 5 mg PO DAILY RF: 0 Discharge Orders: Discharge Order (Routine); Ordered 06/12/20 Ordered By: Bib Rasmussen Admission Data Admit Date/Time: 06/12/20 09:34 Attending Provider: Bib Rasmussen Admit Provider: Bib Rasmussen Primary Care Provider: Mahad Perez Other Providers: Kendall Cotton Other Interventions: Discharge Summary Assessment (RN) Last Done: 06/12/20 20:14
== END 2020-06-12 20:40 | disposition home or self-care (01) ==
LOC: 1E 06:45 → ED 06:45 → 1E 11:25

== ENCOUNTER 2022-07-10 16:07 | Inpatient (IN) ==
[2022-07-10 17:07] LABS: Albumin Globulin Ratio 1.2 (0.9-2); Albumin Level 4.1 gm/dl (3.4-5.0); BUN Creatinine Ratio 21.3 (10-20); Bilirubin,Total 0.3 mg/dl (0.2-1.0); Calcium 9.2 mg/dl (8.6-10.3); Creatinine Clr Calc Pharmacy 89.9 ml/min; Est GFR (African American) 84.2 ml/min; Est GFR (Non-African American) 72.7 ml/min; Globulin 3.5 gm/dl (2.5-4.0); Potassium 3.6 mmol/L (3.5-5.1); Total Protein 7.6 gm/dl (6.0-8.3)
[2022-07-10 17:09] LABS: Basophils # (auto) 0.03 K/uL (0-0.2); Basophils % (auto) 0.3 %; Eosinophils # (auto) 0.13 K/uL (0-0.50); Eosinophils % (auto) 1.4 %; Hemoglobin 12.5 g/dl (14.0-18.0); Immature Granulocytes # (auto) 0.03 K/uL (0.01-0.20); Immature Granulocytes % (auto) 0.3 %; Lymphocytes # (auto) 1.44 K/uL (1.2-3.4); Lymphocytes % (auto) 15.9 %; Mean Corpuscular Hemoglobin 26.9 pg (25.0-34.0); Mean Corpuscular Hgb Conc 32.1 g/dL (32.0-36.0); Mean Corpuscular Volume 83.9 fL (80.0-100.0); Mean Platelet Volume 9.2 fL (9.4-12.4); Monocytes # (auto) 0.89 K/uL (0.11-0.59); Monocytes % (auto) 9.8 %; Neutrophils # (auto) 6.53 K/uL (1.40-6.50); Neutrophils % (auto) 72.3 %; Platelet Count 311 K/uL (130-400); RDW Coefficient of Variation 14.5 % (11.5-14.5); RDW Standard Deviation 44.2 fL (36.4-46.3); Red Blood Count 4.65 M/uL (4.70-6.10); White Blood Count 9.05 K/ul (4.8-10.8)
[2022-07-10] MEDS ORDERED: ERTAPENEM SODIUM 10 ML IV STA (17:10)
--- NOTE | 2022-07-10 17:10 | Emergency Department Note ---
Impression & Plan Complicated UTI (urinary tract infection), Hypertension, Type 2 diabetes mellitus ED Provider Note NAME: CHRIS PAZ AGE: 61 SEX: M : 1960 ARRIVES VIA: Walk-In INFORMANT: Patient ED PROVIDER(S): Grupo Garcia DO CHIEF COMPLAINT: Resistant UTI HPI: Patient is a 61-year-old male who presents the ER referred in by his PCP. He is growing out an ESBL from Thursday. He has been treated as an outpatient with Bactrim and Macrobid. They got a culture by the PCP on Thursday and sensitivities grew out today which showed an ESBL.. They sent him in for admission. He had a device placed/UroLift by Dr. Osorio about 2 weeks ago. Since then he has been having issues with this. Denies any other belly pain but uncomfortable in the lower pelvis. PAST MEDICAL HISTORY:See Below PAST SURGICAL HISTORY:See Below FAMILY HISTORY:See Below SOCIAL HISTORY:See Below HOME MEDICATIONS:See Below ALLERGIES:See Below VITALS:See Below PHYSICAL EXAMINATION: GENERAL: Sitting up in bed, alert, well appearing, well nourished, no distress, non-toxic EYE EXAM: normal conjunctiva. OROPHARYNX: mucous membranes are moist LUNGS: Clear to auscultation. Normal chest wall mechanics HEART: no murmurs, S1 normal and S2 normal ABDOMEN: abdomen soft, non-tender, normo-active bowel sounds, no masses, no rebound or guarding. UPPER EXTREMITIES: upper extremities are grossly normal. LOWER EXTREMITIES: No pitting edema. NEURO EXAM: Normal sensorium, cranial nerves II-XII grossly intact, normal speech, no gross weakness of arms, no gross weakness of legs. MEDICAL DECISION MAKING: Patient is a 61-year-old male who presents ER for above-stated complaint. IV was established blood work was obtained. External records were reviewed from [facility] which shows an ESBL sensitive to both meropenem and ertapenem. Labs show no significant leukocytosis or anemia. BMP slightly elevated glucose. LFTs were unremarkable. UA does suggest a clear UTI. COVID was negative. Patient was placed on ertapenem given dose while in the ER. Discussed with the pharmacist. Also discussed with the hospitalist. Patient was admitted to Dr. Aguilar for further evaluation management and treatment. Triage Nursing notes reviewed. Limited review of prior medical records performed Vital Signs: reviewed and remarkable for HTN Differential diagnosis: Differential diagnoses includes but is not limited to gastritis, peptic ulcer disease, GERD, gallbladder disease, pancreatitis, small bowel obstruction, appendicitis, diverticulitis, hernia, urinary tract infection, torsion, perforation, trauma, infectious. ER treatment provided: See below Diagnostics interpreted by me include EKG and cardiac monitoring as listed below: -Cardiac Monitoring: An order was placed for continuous cardiac monitoring. The monitor shows a rate of 70 with sinus rhythm. -ECG: none -Laboratory studies:Interpreted by me as stated above in MDM and shown below. Imaging studies: Xrays: As interpreted by me:none CTs show: none Consultation(s): As described in MDM Procedures:none Critical Care: None Past Med/Surg History Medical History (Updated 07/10/22 @ 21:10 by Grupo Garcia DO) BPH (benign prostatic hyperplasia) Dyslipidemia Family history of coronary artery disease GERD (gastroesophageal reflux disease) Type 2 diabetes mellitus Surgical History History of laparoscopic cholecystectomy History of prostate biopsy History of vasectomy Family History Father Heart disease OR x 5 Grandmother (Paternal) Heart disease Mother Cancer Social History Smoking Status: Never smoker Second Hand Exposure: Yes; Hx Alcohol Use: No Hx Substance Use: No Preferred Language: Estonian Communication Ability: Effective Rivet Tosser Required: No Beliefs That Will Affect Care: None Current Living Situation: Spouse current occupational status: employed current occupation: staff physician at [employer] Feels Safe at Home: Yes Allergies Allergies Allergy/AdvReac Type Severity Reaction Status Date / Time rofecoxib Allergy Intermediate Hives Verified 07/10/22 17:39 azithromycin Allergy Unknown unsure Verified 07/10/22 17:39 shrimp Allergy Unknown SEAFOOD = Verified 07/10/22 17:39 HIVES Home Meds Home Medications Medication Instructions Recorded Confirmed empagliflozin 10 mg tablet 10 mg PO QAM 06/12/20 07/10/22 (Jardiance) omeprazole 20 mg capsule,delayed 20 mg PO QAM 06/12/20 07/10/22 release tamsulosin 0.4 mg capsule 0.4 mg PO HS 06/12/20 07/10/22 finasteride 5 mg tablet 5 mg PO HS 07/10/22 07/10/22 fluticasone propionate 50 1 spray intranasal DAILY PRN 07/10/22 07/10/22 mcg/actuation nasal Congestion spray,suspension rosuvastatin 10 mg tablet 10 mg PO HS 07/10/22 07/10/22 Results & Data (ED) Vital Signs Vital Signs - 24 hr 07/10/22 16:07 07/10/22 17:26 07/10/22 17:26 Temperature 36.6 C Temperature Source Temporal Artery Scan Pulse Rate 111 H Pulse Rate [Apical] 92 H Pulse Rhythm [Apical] Regular Pulse Strength [Apical] Normal Respiratory Rate 20 18 Respiratory Effort / Characteristics Non-Labored Spontaneous Non-Labored Respiratory Depth Normal Normal Respiratory Pattern Regular Blood Pressure 139/88 Blood Pressure [Left Arm] 132/88 Blood Pressure Mean 105 Blood Pressure Mean [Left Arm] 102 Pulse Oximetry 96 97 98 Oxygen Delivery Method Room Air Room Air Room Air Sepsis Recent Fever Within 48 Hours No Sepsis New/Unexplained Change in Mental Status No Sepsis Action Taken by Nursing No Action Required 07/10/22 17:32 07/10/22 18:46 07/10/22 20:43 Temperature Temperature Source Pulse Rate 90 Pulse Rate [Apical] 82 73 Pulse Rhythm [Apical] Regular Pulse Strength [Apical] Respiratory Rate 18 18 Respiratory Effort / Characteristics Non-Labored Non-Labored Respiratory Depth Normal Normal Respiratory Pattern Regular Regular Blood Pressure Blood Pressure [Left Arm] 154/90 H 160/91 H Blood Pressure Mean Blood Pressure Mean [Left Arm] 111 114 Pulse Oximetry 97 96 Oxygen Delivery Method Room Air Room Air Sepsis Recent Fever Within 48 Hours Sepsis New/Unexplained Change in Mental Status Sepsis Action Taken by Nursing Laboratory Data 07/10/22 16:22 07/10/22 16:22 Lab Results 07/10/22 07/10/22 07/10/22 Range/Units 16:22 16:22 17:26 WBC 9.05 (4.8-10.8) K/ul RBC 4.65 L (4.70-6.10) M/uL Hgb 12.5 L (14.0-18.0) g/dl Hct 39.0 L (42.0-52.0) % MCV 83.9 (80.0-100.0) fL MCH 26.9 (25.0-34.0) pg MCHC 32.1 (32.0-36.0) g/dL RDW Std Deviation 44.2 (36.4-46.3) fL RDW Coeff of Silvano 14.5 (11.5-14.5) % Plt Count 311 (130-400) K/uL MPV 9.2 L (9.4-12.4) fL Immature Gran % (Auto) 0.3 % Neut % (Auto) 72.3 % Lymph % (Auto) 15.9 % Tama % (Auto) 9.8 % Eos % (Auto) 1.4 % Baso % (Auto) 0.3 % Neut # (Auto) 6.53 H (1.40-6.50) K/uL Lymph # (Auto) 1.44 (1.2-3.4) K/uL Tama # (Auto) 0.89 H (0.11-0.59) K/uL Eos # (Auto) 0.13 (0-0.50) K/uL Baso # (Auto) 0.03 (0-0.2) K/uL Immature Gran # (Auto) 0.03 (0.01-0.20) K/uL Sodium 139 (136-145) mmol/L Potassium 3.6 (3.5-5.1) mmol/L Chloride 107 (98-107) mmol/L Carbon Dioxide 24 (21-32) mmol/L Anion Gap 8 (3-11) BUN 23 (6-23) mg/dl Creatinine 1.08 (0.6-1.4) mg/dl Est Cr Clr Drug Dosing 89.9 ml/min Est GFR ( Amer) 84.2 ml/min Est GFR (Non-Af Amer) 72.7 ml/min BUN/Creatinine Ratio 21.3 H (10-20) Glucose 121 H (70-99(Fasting)) mg/dl POC Glucose (70-99) mg/dl Calcium 9.2 (8.6-10.3) mg/dl Total Bilirubin 0.3 (0.2-1.0) mg/dl AST 19 (13-39) U/L ALT 17 (7-52) U/L Alkaline Phosphatase 43 (34-104) U/L Total Protein 7.6 (6.0-8.3) gm/dl Albumin 4.1 (3.4-5.0) gm/dl Globulin 3.5 (2.5-4.0) gm/dl Albumin/Globulin Ratio 1.2 (0.9-2) Urine Color Yellow Urine Appearance Clear (Clear) Urine pH 5.0 (4.5-7.5) Ur Specific [place] 1.026 (1.000-1.030) Urine Protein Negative (Negative) Urine Glucose (UA) 3+ H (Negative) Urine Ketones Negative (Negative) Urine Blood 1+ H (Negative) Urine Nitrite Negative (Negative) Urine Bilirubin Negative (Negative) Urine Urobilinogen Negative (Negative) Ur Leukocyte Esterase Negative (Negative) Urine WBC (Auto) >30 H (0-5) /hpf Urine RBC (Auto) 0-4 (0-4) /hpf U Hyaline Cast (Auto) 1-5 (0-5) /lpf U Epithel Cells (Auto) 0-5 (0-5) /lpf Urine Bacteria (Auto) 2+ H (Negative) SARS-CoV-2, RNA, NAAT (NEGATIVE) 07/10/22 07/10/22 Range/Units 17:26 20:38 WBC (4.8-10.8) K/ul RBC (4.70-6.10) M/uL Hgb (14.0-18.0) g/dl Hct (42.0-52.0) % MCV (80.0-100.0) fL MCH (25.0-34.0) pg MCHC (32.0-36.0) g/dL RDW Std Deviation (36.4-46.3) fL RDW Coeff of Silvano (11.5-14.5) % Plt Count (130-400) K/uL MPV (9.4-12.4) fL Immature Gran % (Auto) % Neut % (Auto) % Lymph % (Auto) % Tama % (Auto) % Eos % (Auto) % Baso % (Auto) % Neut # (Auto) (1.40-6.50) K/uL Lymph # (Auto) (1.2-3.4) K/uL Tama # (Auto) (0.11-0.59) K/uL Eos # (Auto) (0-0.50) K/uL Baso # (Auto) (0-0.2) K/uL Immature Gran # (Auto) (0.01-0.20) K/uL Sodium (136-145) mmol/L Potassium (3.5-5.1) mmol/L Chloride (98-107) mmol/L Carbon Dioxide (21-32) mmol/L Anion Gap (3-11) BUN (6-23) mg/dl Creatinine (0.6-1.4) mg/dl Est Cr Clr Drug Dosing ml/min Est GFR ( Amer) ml/min Est GFR (Non-Af Amer) ml/min BUN/Creatinine Ratio (10-20) Glucose (70-99(Fasting)) mg/dl POC Glucose 101 H (70-99) mg/dl Calcium (8.6-10.3) mg/dl Total Bilirubin (0.2-1.0) mg/dl AST (13-39) U/L ALT (7-52) U/L Alkaline Phosphatase (34-104) U/L Total Protein (6.0-8.3) gm/dl Albumin (3.4-5.0) gm/dl Globulin (2.5-4.0) gm/dl Albumin/Globulin Ratio (0.9-2) Urine Color Urine Appearance (Clear) Urine pH (4.5-7.5) Ur Specific [place] (1.000-1.030) Urine Protein (Negative) Urine Glucose (UA) (Negative) Urine Ketones (Negative) Urine Blood (Negative) Urine Nitrite (Negative) Urine Bilirubin (Negative) Urine Urobilinogen (Negative) Ur Leukocyte Esterase (Negative) Urine WBC (Auto) (0-5) /hpf Urine RBC (Auto) (0-4) /hpf U Hyaline Cast (Auto) (0-5) /lpf U Epithel Cells (Auto) (0-5) /lpf Urine Bacteria (Auto) (Negative) SARS-CoV-2, RNA, NAAT NEGATIVE (NEGATIVE) Administered Medications Insulin Aspart (Insulin Aspart Per Unit Charge) 0 units SC ACHS LEMUEL Stop: 08/09/22 20:59 Last Admin: 07/10/22 20:40 Dose: Not Given Documented By: SM Co-signed By: KMB Discontinued Medications Enoxaparin Sodium (Enoxaparin Inj 40 Mg/0.4 Ml Syr) 40 mg SQ NOW STA Stop: 07/10/22 19:29 Last Admin: 07/10/22 20:40 Dose: 40 mg Documented By: ALIE Ertapenem (Invanz) 10 mls @ 2 mls/min IV NOW STA Stop: 07/10/22 17:14 Last Admin: 07/10/22 17:25 Dose: 2 mls/min Documented By: ALIE Sodium Chloride (Nss 1000ml) 1,000 mls @ 999 mls/hr IV .Q1H1M ONE Stop: 07/10/22 18:11 Last Infusion: 07/10/22 18:40 Dose: 0 mls/hr Documented By: Admin: 07/10/22 17:26 Dose: 999 mls/hr Documented By: ALIE Discharge Plan Visit Data Chief Complaint: Referred by Doctor Stated Complaint: REF BY DOC, INFECTION ED Provider: Grupo Garcia Discharge Problem: Complicated UTI (urinary tract infection), Hypertension, Type 2 diabetes mellitus Forms Stand Alone Forms: [facility] [employer] Prescriptions Prescriptions: No Action fluticasone propionate 50 mcg/actuation spray,suspension 1 spray INTRANASAL DAILY PRN (Reason: Congestion) finasteride 5 mg tablet 5 mg PO HS rosuvastatin 10 mg tablet 10 mg PO HS tamsulosin 0.4 mg capsule 0.4 mg PO HS omeprazole 20 mg capsule,delayed release(DR/EC) 20 mg PO QAM Jardiance 10 mg tablet 10 mg PO QAM Referrals Referrals: Mahad Perez DO [Physician] -
[2022-07-10] MEDS ORDERED: SODIUM CHLORIDE 0.9% 1000ML 1,000 ML IV ONE (17:11)
--- NOTE | 2022-07-10 17:58 | History & Physical Report ---
Date of Service July 10, 2022 Assessment & Plan (1) Complicated UTI (urinary tract infection): Plan: Has had UroLift on 12 June this year 3 courses of antibiotic since then with Bactrim and Macrobid Frequency and dysuria since last evening and urine culture grew ESBL taken on of this month No fever and no white count but noted to be tachycardic on arrival Started with intravenous ertapenem and will be continued Urology evaluation while in the hospital given recent UroLift (2) Type 2 diabetes mellitus: Plan: Has been on Jardiance We will hold it and give him on sliding scale insulin coverage (3) BPH (benign prostatic hyperplasia): Plan: Has had UroLift procedure on of this month by Dr. Lake Will get urology evaluation while in the hospital (4) Dyslipidemia: Plan: Continue statin (5) GERD (gastroesophageal reflux disease): Plan: Continue PPI (6) Hypertension: Plan: Stable DVT prophylaxis Lovenox CODE STATUS Full History of Present Illness Chief Complaint: Frequency of urination since last evening Primary Care Provider: Aman Darden PA-C He is a 61-year-old obese male with significant past medical history of type 2 diabetes, hyperlipidemia, hypertension, GERD and BPH with recent UroLift procedure apparently has been complaining of frequency of urination of about 10 times with dysuria since last night. He underwent UroLift procedure on 12 June and since then he has been on 2 different antibiotics on 3 different occasions for fever and UTI symptoms. Following the procedure he received Bactrim for 3 days and after that he received Macrobid for fever and urinary symptoms for a few days and after that he was given Bactrim for 10 days for ongoing fever and urinary symptoms. He underwent a urine test on Thursday last that grew ESBL and with the recent dysuria and frequency he was advised to come to the emergency room. Denies any fever and or chills or sweating. No nausea no vomiting. No other symptoms Allergies Allergy/AdvReac Type Severity Reaction Status Date / Time rofecoxib Allergy Intermediate Hives Verified 07/10/22 17:39 azithromycin Allergy Unknown unsure Verified 07/10/22 17:39 shrimp Allergy Unknown SEAFOOD = Verified 07/10/22 17:39 HIVES Home Medications Medication Instructions Recorded Confirmed Type empagliflozin 10 mg tablet 10 mg PO QAM 06/12/20 07/10/22 History (Jardiance) omeprazole 20 mg capsule,delayed 20 mg PO QAM 06/12/20 07/10/22 History release tamsulosin 0.4 mg capsule 0.4 mg PO HS 06/12/20 07/10/22 History finasteride 5 mg tablet 5 mg PO HS 07/10/22 07/10/22 History fluticasone propionate 50 1 spray intranasal DAILY PRN 07/10/22 07/10/22 History mcg/actuation nasal Congestion spray,suspension rosuvastatin 10 mg tablet 10 mg PO HS 07/10/22 07/10/22 History Past Med/Surg History Medical History (Updated 07/10/22 @ 17:56 by Alex Aguilar MD) BPH (benign prostatic hyperplasia) Dyslipidemia Family history of coronary artery disease GERD (gastroesophageal reflux disease) Type 2 diabetes mellitus Surgical History History of laparoscopic cholecystectomy History of prostate biopsy History of vasectomy Family History Father Heart disease [place] x 5 Grandmother (Paternal) Heart disease Mother Cancer Social History Smoking Status: Never smoker Second Hand Exposure: Yes; Hx Alcohol Use: No Hx Substance Use: No Preferred Language: South Korean Communication Ability: Effective Flipping Machine Operator Required: No Beliefs That Will Affect Care: None Current Living Situation: Spouse current occupational status: employed current occupation: crusher machine operator at [employer] Feels Safe at Home: Yes Review of Systems Review of Systems: All systems reviewed and are unremarkable except as noted below Genitourinary: + dysuria and + urinary frequency Physical Exam Physical Exam: Lying in bed comfortably Constitutional: well developed, well nourished, + ill appearing and + obese Eyes: PERRL, conjunctivae normal, anicteric sclerae ENMT: external ear and nose normal, oropharynx normal Neck: trachea midline, no thyromegaly Respiratory: no respiratory distress Auscultation: lungs clear to auscultation bilaterally; no crackles Cardiovascular: Rate/Rhythm: regular rate and regular rhythm; not tachycardic Heart Sounds: normal S1 and normal S2; no murmur Extremities: no edema Gastrointestinal (Abdomen): Inspection/Auscultation: normal bowel sounds; abdomen not distended Percussion/Palpation: abdomen soft; abdomen nontender Musculoskeletal: No acute arthritis involving any joint Neurologic: normal touch/pain/proprioception and moves all extremities; no focal motor deficits Psychiatric: A+Ox3, euthymic affect Lymphatic: no cervical or axillary lymphadenopathy Results & Data Results & Data Vital Signs (Past 12 Hours) Vital Signs Temp Pulse Pulse Resp BP BP Pulse Ox 07/10/22 17:26 98 07/10/22 17:26 92 H 18 132/88 97 07/10/22 16:07 36.6 C 111 H 20 139/88 96 O2 Del Method 07/10/22 17:26 Room Air 07/10/22 17:26 Room Air 07/10/22 16:07 Room Air Laboratory Results Short CBC 07/10/22 Range/Units 16:22 WBC 9.05 (4.8-10.8) K/ul Hgb 12.5 L (14.0-18.0) g/dl Hct 39.0 L (42.0-52.0) % Plt Count 311 (130-400) K/uL BMP 07/10/22 16:22 Sodium 139 Potassium 3.6 Chloride 107 Carbon Dioxide 24 BUN 23 Creatinine 1.08 Glucose 121 H Calcium 9.2 Liver Function 07/10/22 Range/Units 16:22 Total Bilirubin 0.3 (0.2-1.0) mg/dl AST 19 (13-39) U/L ALT 17 (7-52) U/L Alkaline Phosphatase 43 (34-104) U/L Albumin 4.1 (3.4-5.0) gm/dl Medications Administered Current Inpatient Medications Enoxaparin Sodium (Enoxaparin Inj 40 Mg/0.4 Ml Syr) 40 mg SQ QAM [facility] Stop: 08/09/22 17:59 Sodium Chloride (Nss 1000ml) 1,000 mls @ 999 mls/hr IV .Q1H1M ONE Stop: 07/10/22 18:11 Last Admin: 07/10/22 17:26 Dose: 999 mls/hr Ertapenem 1,000 mg/ Syringe 10 mls @ 2 mls/min IV Q24H [facility] Stop: 07/15/22 17:59 (2) Type 2 diabetes mellitus Diabetes mellitus laborer marine terminal insulin use: without fdc use Diabetes mellitus complication status: without complication Qualified Code(s): E11.9 - Type 2 diabetes mellitus without complications
[2022-07-10 18:17] LABS: Appearance Urine Clear (Clear); Bacteria Urine Automated 2+ (Negative); Bilirubin Urine Negative (Negative); Blood Urine 1+ (Negative); Color Urine Yellow; Epithelial Cell Urine Auto 0-5 /lpf (0-5); Glucose Urine UA 3+ (Negative); Ketones Urine Negative (Negative); Leukocyte Esterase Urine Negative (Negative); Nitrite Urine Negative (Negative); Protein Urine Negative (Negative); RBC Urine Automated 0-4 /hpf (0-4); Specific Gravity Urine 1.026 (1.000-1.030); Urobilinogen Urine Negative (Negative); WBC Urine Automated >30 /hpf (0-5)
[2022-07-10] MEDS ORDERED: GLUCOSE 10 TAB/TUBE PO PRN (18:45)
[2022-07-10] MEDS ORDERED: GLUCAGON FOR INJ 1 MG VIAL IM PRN (18:45)
[2022-07-10] MEDS ORDERED: DEXTROSE 50% 50 ML SYRINGE IV PRN (18:45)
[2022-07-10] MEDS ORDERED: GLUCOSE 40% GEL 15 GM TUBE PO PRN (18:45)
[2022-07-10] MEDS ORDERED: CARBOHYDRATES FOR HYPOGLYCEMIA PO PRN (18:45)
[2022-07-10] MEDS ORDERED: ENOXAPARIN INJ 40 MG/0.4 ML SYR SQ STA (19:28)
[2022-07-10] MEDS: INSULIN ASPART PER UNIT CHARGE SC SCH (20:40)
[2022-07-10] MEDS ORDERED: FLUTICASONE PROPIONATE NA SPR 16 GM BTL NAE PRN (22:13)
[2022-07-10] MEDS: TAMSULOSIN HCL 0.4 MG CAP PO SCH (23:20)
[2022-07-10] MEDS: ROSUVASTATIN CALCIUM 10 MG TAB PO SCH (23:20)
[2022-07-10] MEDS: FINASTERIDE 5 MG TAB PO SCH (23:20)
[2022-07-11] MEDS: PANTOprazole 40 MG TAB PO SCH (08:17)
[2022-07-11] MEDS: INSULIN ASPART PER UNIT CHARGE SC SCH ×4 (08:46→21:14)
[2022-07-11 09:19] LABS: Basophils # (auto) 0.04 K/uL (0-0.2); Basophils % (auto) 0.6 %; Eosinophils # (auto) 0.12 K/uL (0-0.50); Eosinophils % (auto) 1.7 %; Hematocrit (blood only) 39.1 % (42.0-52.0); Hemoglobin 12.4 g/dl (14.0-18.0); Immature Granulocytes # (auto) 0.02 K/uL (0.01-0.20); Immature Granulocytes % (auto) 0.3 %; Lymphocytes % (auto) 18.4 %; Mean Corpuscular Hemoglobin 26.7 pg (25.0-34.0); Mean Corpuscular Hgb Conc 31.7 g/dL (32.0-36.0); Mean Corpuscular Volume 84.1 fL (80.0-100.0); Monocytes # (auto) 0.83 K/uL (0.11-0.59); Monocytes % (auto) 11.8 %; Neutrophils # (auto) 4.75 K/uL (1.40-6.50); Neutrophils % (auto) 67.2 %; Platelet Count 267 K/uL (130-400); RDW Coefficient of Variation 14.6 % (11.5-14.5); RDW Standard Deviation 44.7 fL (36.4-46.3); Red Blood Count 4.65 M/uL (4.70-6.10); White Blood Count 7.06 K/ul (4.8-10.8)
[2022-07-11 09:31] LABS: BUN Creatinine Ratio 19.8 (10-20); Creatinine Clr Calc Pharmacy 100.7 ml/min; Est GFR (African American) 97.1 ml/min; Est GFR (Non-African American) 83.8 ml/min; Potassium 3.6 mmol/L (3.5-5.1)
--- NOTE | 2022-07-11 10:13 | CT Scan Report ---
CT SCAN OF THE ABDOMEN AND PELVIS WITHOUT IV CONTRAST CLINICAL HISTORY: Recurrent urinary tract infection. Clinical concern for prostatic abscess. COMPARISON STUDY: No priors. TECHNIQUE: CT scan of the abdomen and pelvis is performed from the lung bases to the proximal femora. Images are reviewed in the axial, sagittal, and coronal planes. IV contrast was not administered for this examination. Note that the examination is suboptimal without IV contrast. A dose lowering techn ique was utilized adhering to the principles of ALARA. CT DOSE: 1048.72 mGy.cm FINDINGS: Lung bases: The heart is normal in size and without pericardial effusion. A calcified granuloma is no franki at the left lung base. The lung bases are otherwise clear noting dependent scarring/atelectasis. There is a tiny hiatal hernia. Liver: The unenhanced liver is enlarged, measuring 20 cm in length. The liver demonstrates diffusely diminished attenuation indicating steatosis. There is no intrahepatic biliary ductal dilatation. Gallbladder: Surgically absent noting clips in the gallbladder fossa. Spleen: Normal in size and attenuation. Pancreas: Unremarkable. Adrenal glands: Unremarkable. Kidneys: The unenhanced kidneys are normal in size and without hydronephrosis. No renal calculi are i dentified. Right renal cysts measure up to 1.8 cm. Abdominal vasculature: The abdominal aorta is normal in course and caliber. Bowel: There is mild colonic diverticulosis without CT evidence of acute diverticulitis. No bowel obs truction is seen. [id number] fecal retention is noted throughout the colon. The appendix is we ll-visualized and normal. Peritoneum: There is no intraperitoneal free air or abdominal ascites. There is a small fat-containin g umbilical hernia. Lymphadenopathy: There are mildly enlarged iliac chain and left pelvic sidewall lymph nodes. A left e xternal iliac chain node on image #[id number] measures 1.9 x 1.5 cm. The left pelvic sidewall nodule/node on image #[id number] measures 1.2 x 1.0 cm. Pelvic viscera: The prostate gland is enlarged and heterogeneous with brachytherapy implants in place . The bladder wall is thickened/trabeculated indicating chronic outlet obstruction. There is mild per iprosthetic infiltration. There is no evidence of prostatic abscess on this unenhanced examination. T his is not well evaluated without IV contrast. There are small bilateral fat-containing groin hernias . Skeletal structures: The skeletal structures appear osteopenic. There is mild lumbosacral spondylosis . Degenerative change and partial fusion is noted in the sacroiliac joints. No lytic or blastic lesio ns are seen. IMPRESSION: 1. The prostate gland is enlarged and heterogeneous with brachytherapy implants in place. 2. There is mild periprostatic infiltration. Correlate with clinical findings and urinalysis for evid ence of prostatitis. 3. There is no evidence of prostatic abscess on this unenhanced examination. Note that this is not we ll assessed without IV contrast. 4. There is evidence of chronic bladder outlet obstruction. 5. Mildly enlarged iliac chain and left pelvic sidewall lymph nodes are nonspecific and may be reacti ve. Metastatic lesions are in the differential if there is a history of prostate cancer. Attention at follow-up is recommended. 6. Hepatomegaly and hepatic steatosis. 7. Colonic diverticulosis without CT evidence of acute diverticulitis. 8. Additional findings as above. ACT 112: Negative or not required by law. Electronically signed by: Tj Tavera M.D. 07/11/2022 10:12 AM
--- NOTE | 2022-07-11 12:40 | Urology Consultation ---
Date of Consultation July 11, 2022 Assessment & Plan (1) Complicated UTI (urinary tract infection): 61-year-old male admitted for complicated urinary tract infection status post recent UroLift procedure. Patient afebrile, hemodynamically stable. Urine culture on arrival is showing prelim gram-negative bacilli. Outpatient urine culture 07/07 grew out E. coli ESBL, sensitive to Ertapenem. Recommend CT A/P for further evaluation of recurrent infections after recent procedure, rule out abscess. CT reviewed Prostate is enlarged and heterogeneous with UroLift implants, mild periprostatic infiltration noted, no prostatic abscess visualized, evidence of chronic bladder outlet obstruction. No acute intervention indicated. Continue supportive care and antibiotics per hospital medicine team. Recommend monitor bladder emptying with prn bladder scan. Patient can follow-up with his established urologist after hospital discharge. will sign off. History of Present Illness Reason for Consultation: UTI s/p Urolift Requesting Physician: Dr. Aguilar Attending Physician: Alex Aguilar MD History of Present Illness 61-year-old male with past medical history of hypertension, type 2 diabetes, and BPH with obstruction admitted for complicated urinary tract infection status post recent UroLift procedure. Patient is status post UroLift procedure on 06/12/[address] Lake at [facility]. Since his procedure, he has had recurrent symptoms of urinary frequency and dysuria and has been treated with multiple oral antibiotics. Most recently he was on Macrobid and Bactrim. Urine culture on 07/07 grew out E. coli ESBL and patient was referred to the emergency department for treatment. On arrival he was afebrile, tachycardic, but otherwise hemodynamically stable. Lab work showed WBC 9.05, hemoglobin 12.5, creatinine 1.08. Urinalysis showed 3+ glucose, 1+ blood, >30 WBC, 2+ bacteria. He was treated with IV fluids and ertapenem in the emergency department. He was admitted for further evaluation and management. Urology is consulted for UTI status post UroLift. Patient seen and examined at bedside this morning. He is awake and resting in bed, no apparent distress. He denies any abdominal, flank or suprapubic discomfort. No rectal discomfort. He is voiding spontaneously. He notes mild dysuria, no hematuria. He feels like he is emptying his bladder most of the time. No nausea or vomiting. No fever or chills. He is on tamsulosin and finasteride. He denies any imaging since his procedure/symptom onset. No additional concerns today. Allergies Allergy/AdvReac Type Severity Reaction Status Date / Time rofecoxib Allergy Intermediate Hives Verified 07/10/22 17:39 azithromycin Allergy Unknown unsure Verified 07/10/22 17:39 shrimp Allergy Unknown SEAFOOD = Verified 07/10/22 17:39 HIVES Home Medications Medication Instructions Recorded Confirmed Type empagliflozin 10 mg tablet 10 mg PO QAM 06/12/20 07/10/22 History (Jardiance) omeprazole 20 mg capsule,delayed 20 mg PO QAM 06/12/20 07/10/22 History release tamsulosin 0.4 mg capsule 0.4 mg PO HS 06/12/20 07/10/22 History finasteride 5 mg tablet 5 mg PO HS 07/10/22 07/10/22 History fluticasone propionate 50 1 spray intranasal DAILY PRN 07/10/22 07/10/22 History mcg/actuation nasal Congestion spray,suspension rosuvastatin 10 mg tablet 10 mg PO HS 07/10/22 07/10/22 History Patient History Medical History BPH (benign prostatic hyperplasia) Dyslipidemia Family history of coronary artery disease GERD (gastroesophageal reflux disease) Type 2 diabetes mellitus Surgical History History of laparoscopic cholecystectomy History of prostate biopsy History of vasectomy Family History Father Heart disease [place] x 5 Grandmother (Paternal) Heart disease Mother Cancer Social History Smoking Status: Never smoker Second Hand Exposure: No; Do You Dip or Chew Tobacco: No; Tobacco Cessation Education Requested by Patient: No Hx Alcohol Use: No Hx Substance Use: No Preferred Language: Marshallese Communication Ability: Effective Line Haul Driver Required: No Beliefs That Will Affect Care: None Current Living Situation: Spouse current occupational status: employed current occupation: commis chef at [employer] Other Information That Helps Us Care for You: No Feels Safe at Home: Yes Assistive Devices: None Review of Systems Review of Systems: All systems reviewed & are unremarkable except as noted in HPI & below Physical Exam Constitutional: well developed and well nourished; no acute distress Respiratory: normal respiratory effort; no respiratory distress and no labored breathing Cardiovascular: Extremities: no pedal edema Gastrointestinal (Abdomen): Inspection/Auscultation: abdomen normal to inspection; abdomen not distended Percussion/Palpation: abdomen soft; abdomen nontender Neurologic: moves all extremities and awake Psychiatric: Orientation: alert and oriented x 3 Results & Data Vital Signs (Past 12 Hours) Vital Signs Temp Pulse Pulse Resp BP BP Pulse Ox 07/11/22 08:01 36.7 C 72 16 128/87 97 07/10/22 22:23 37.4 C 76 18 147/98 H 98 07/10/22 21:54 83 18 150/98 H 95 O2 Del Method 07/11/22 08:01 Room Air 07/10/22 22:23 Room Air 07/10/22 21:54 Room Air PG Care Time/CCT Total # of Minutes Spent Total Time Spent with Patient: Total time spent is greater than 50% in coordination of care (as documented) at patient's floor/unit and/or counseling patient: Coding Level of Care Code 14916 IN/OBS CONSULT LVL 3,45M Diagnoses Complicated UTI (urinary tract infection) N39.0
--- NOTE | 2022-07-11 14:24 | Hospitalist Progress Note ---
Date of Service July 11, 2022 Assessment & Plan (1) Complicated UTI (urinary tract infection): Plan: Has had UroLift on 12 June this year- Current complicated UTI may be secondary to a complication of UroLift procedure 3 courses of antibiotic since then with Bactrim and Macrobid Frequency and dysuria since last evening and urine culture grew ESBL taken on of this month No fever and no white count but noted to be tachycardic on arrival Started with intravenous ertapenem and will be continued Urology evaluation while in the hospital given recent UroLift CT of the abdomen pelvis did not show any prostatic abscess Urine is growing gram-negative bacilli likely going to be ESBL We will continue intravenous ertapenem for about a total of 14 days He can be discharged this afternoon (2) Type 2 diabetes mellitus: Plan: Has been on Jardiance We will hold it and give him on sliding scale insulin coverage (3) BPH (benign prostatic hyperplasia): Plan: Has had UroLift procedure on of this month by Dr. Lake Will get urology evaluation while in the hospital (4) Dyslipidemia: Plan: Continue statin (5) GERD (gastroesophageal reflux disease): Plan: Continue PPI (6) Hypertension: Plan: Stable DVT prophylaxis Lovenox CODE STATUS Full Admission and Anticipated Discharge Date Admission Date: July 10, 2022 Subjective 07/11/2022 The patient was seen and examined in medical floor He has been feeling fine without any significant symptoms except dysuria which has been ongoing No fever and no chills Review of Systems Review of Systems: All systems reviewed and are unremarkable except as noted below Genitourinary: + dysuria and + urinary frequency Physical Exam Physical Exam: Lying in bed comfortably Constitutional: well developed, well nourished, + ill appearing and + obese Eyes: PERRL, conjunctivae normal, anicteric sclerae ENMT: external ear and nose normal, oropharynx normal Neck: trachea midline, no thyromegaly Respiratory: no respiratory distress Auscultation: lungs clear to auscultation bilaterally; no crackles Cardiovascular: Rate/Rhythm: regular rate and regular rhythm; not tachycardic Heart Sounds: normal S1 and normal S2; no murmur Extremities: no edema Gastrointestinal (Abdomen): Inspection/Auscultation: normal bowel sounds; abdomen not distended Percussion/Palpation: abdomen soft; abdomen nontender Musculoskeletal: no cyanosis or clubbing, extremities motor strength 5/5 Neurologic: normal touch/pain/proprioception and moves all extremities; no focal motor deficits Psychiatric: A+Ox3, euthymic affect Lymphatic: no cervical or axillary lymphadenopathy Results & Data Results & Data Vital Signs (Past 12 Hours) Vital Signs Temp Pulse Resp BP Pulse Ox O2 Del Method 07/11/22 08:01 36.7 C 72 16 128/87 97 Room Air Laboratory Results Short CBC 07/10/22 07/11/22 Range/Units 16:22 08:48 WBC 9.05 7.06 (4.8-10.8) K/ul Hgb 12.5 L 12.4 L (14.0-18.0) g/dl Hct 39.0 L 39.1 L (42.0-52.0) % Plt Count 311 267 (130-400) K/uL BMP 07/10/22 07/11/22 16:22 08:48 Sodium 139 139 Potassium 3.6 3.6 Chloride 107 105 Carbon Dioxide 24 28 BUN 23 19 Creatinine 1.08 0.96 Glucose 121 H 117 H Calcium 9.2 9.0 Liver Function 07/10/22 Range/Units 16:22 Total Bilirubin 0.3 (0.2-1.0) mg/dl AST 19 (13-39) U/L ALT 17 (7-52) U/L Alkaline Phosphatase 43 (34-104) U/L Albumin 4.1 (3.4-5.0) gm/dl Urine 07/10/22 Range/Units 17:26 Urine Color Yellow Urine Appearance Clear (Clear) Urine pH 5.0 (4.5-7.5) Ur Specific Finley 1.026 (1.000-1.030) Urine Protein Negative (Negative) Urine Glucose (UA) 3+ H (Negative) Medications Administered Current Inpatient Medications Dextrose (Dextrose 50% 50 Ml Syringe) 25 - 50 ml IV UD PRN; Protocol PRN Reason: Hypoglycemia Protocol Stop: 08/09/22 18:44 Enoxaparin Sodium (Enoxaparin Inj 40 Mg/0.4 Ml Syr) 40 mg SQ Q24H [facility]EMU[facility] Stop: 08/10/22 19:59 Finasteride (Finasteride 5 Mg Tab) 5 mg PO HS [facility]UEL Stop: 08/09/22 22:12 Last Admin: 04/13/23 23:20 Dose: 5 mg Fluticasone Propionate (Fluticasone Propionate Na Spr 16 Gm Btl) 1 sprays FLOR DAILY PRN PRN Reason: Congestion Stop: 08/09/22 22:12 Glucagon (Glucagon For Inj 1 Mg Vial) 1 mg IM UD PRN; Protocol PRN Reason: Hypoglycemia Protocol Stop: 08/09/22 18:44 Glucose (Glucose 40% Gel 15 Gm Tube) 15 - 30 gm PO UD PRN; Protocol PRN Reason: Hypoglycemia Protocol Stop: 08/09/22 18:44 Glucose (Glucose 10 Tab/Tube) 4 - 8 tab PO UD PRN; Protocol PRN Reason: Hypoglycemia Protocol Stop: 08/09/22 18:44 Ertapenem 1,000 mg/ Syringe 10 mls @ 2 mls/min IV Q24H LEMUEL; Protocol Stop: 07/14/22 18:04 Insulin Aspart (Insulin Aspart Per Unit Charge) 0 units SC ACHS LEMUEL Stop: 08/09/22 20:59 Last Admin: 07/11/22 12:50 Dose: 8 units Miscellaneous (Carbohydrates For Hypoglycemia ) 15 - 30 gm PO UD PRN PRN Reason: Hypoglycemia Treatment Stop: 08/09/22 18:44 Pantoprazole Sodium (Pantoprazole 40 Mg Tab) 40 mg PO QAM [facility] Stop: 08/10/22 08:59 Last Admin: 07/11/22 08:17 Dose: 40 mg Rosuvastatin Calcium (Rosuvastatin Calcium 10 Mg Tab) 10 mg PO HS [facility] Stop: 08/09/22 22:12 Last Admin: 07/10/22 23:20 Dose: 10 mg Tamsulosin HCl (Tamsulosin Hcl 0.4 Mg Cap) 0.4 mg PO HS L[facility]UEL Stop: 08/09/22 22:12 Last Admin: 07/10/22 23:20 Dose: 0.4 mg
[2022-07-11] MEDS ORDERED: ERTAPENEM SODIUM 1,000 MG in SYRINGE 0 ML IV SCH (18:00)
[2022-07-11] MEDS ORDERED: ENOXAPARIN INJ 40 MG/0.4 ML SYR SQ SCH (20:00)
[2022-07-11] MEDS: FINASTERIDE 5 MG TAB PO SCH (20:01)
[2022-07-11] MEDS: ROSUVASTATIN CALCIUM 10 MG TAB PO SCH (20:02)
[2022-07-11] MEDS: TAMSULOSIN HCL 0.4 MG CAP PO SCH (20:02)
[2022-07-12] MEDS: PANTOprazole 40 MG TAB PO SCH (07:51)
[2022-07-12] MEDS: INSULIN ASPART PER UNIT CHARGE SC SCH ×2 (09:34→13:05)
--- NOTE | 2022-07-12 12:28 | Hospitalist Progress Note ---
Date of Service July 12, 2022 Assessment & Plan (1) Complicated UTI (urinary tract infection): Plan: Has had UroLift on 12 June this year- Current complicated UTI may be secondary to a complication of UroLift procedure 3 courses of antibiotic since then with Bactrim and Macrobid Frequency and dysuria since last evening and urine culture grew ESBL taken on of this month No fever and no white count but noted to be tachycardic on arrival Started with intravenous ertapenem and will be continued Urology evaluation while in the hospital given recent UroLift CT of the abdomen pelvis did not show any prostatic abscess Urine is growing gram-negative bacilli likely going to be ESBL We will continue intravenous ertapenem for about a total of 14 days Denies any symptoms and will be discharged home this afternoon to finish the course of antibiotic as planned Examination remains unremarkable (2) Type 2 diabetes mellitus: Plan: Has been on Jardiance We will hold it and give him on sliding scale insulin coverage (3) BPH (benign prostatic hyperplasia): Plan: Has had UroLift procedure on of this month by Dr. Lake Will get urology evaluation while in the hospital Appreciate urology input and recommendation (4) Dyslipidemia: Plan: Continue statin (5) GERD (gastroesophageal reflux disease): Plan: Continue PPI (6) Hypertension: Plan: Stable DVT prophylaxis Lovenox CODE STATUS Full Plan Discharge this afternoon Admission and Anticipated Discharge Date Admission Date: July 10, 2022 Subjective 07/11/2022 The patient was seen and examined in medical floor He has been feeling fine without any significant symptoms except dysuria which has been ongoing No fever and no chills 07/12/2022 The patient was seen and examined in medical floor He has been waiting to be discharged and denies any significant symptoms Still has dysuria but has improved a lot Review of Systems Review of Systems: All systems reviewed and are unremarkable except as noted below Genitourinary: + dysuria and + urinary frequency Physical Exam Physical Exam: Lying in bed comfortably Constitutional: well developed, well nourished, + ill appearing and + obese Eyes: PERRL, conjunctivae normal, anicteric sclerae ENMT: external ear and nose normal, oropharynx normal Neck: trachea midline, no thyromegaly Respiratory: no respiratory distress Auscultation: lungs clear to auscultation bilaterally; no crackles Cardiovascular: Rate/Rhythm: regular rate and regular rhythm; not tachycardic Heart Sounds: normal S1 and normal S2; no murmur Extremities: no edema Gastrointestinal (Abdomen): Inspection/Auscultation: normal bowel sounds; abdomen not distended Percussion/Palpation: abdomen soft; abdomen nontender Musculoskeletal: no cyanosis or clubbing, extremities motor strength 5/5 Neurologic: normal touch/pain/proprioception and moves all extremities; no focal motor deficits Psychiatric: A+Ox3, euthymic affect Lymphatic: no cervical or axillary lymphadenopathy Results & Data Results & Data Vital Signs (Past 12 Hours) Vital Signs Temp Pulse Resp BP Pulse Ox O2 Del Method 07/12/22 07:38 37.1 C 52 L 16 135/90 94 Room Air
--- NOTE | 2022-07-13 07:36 | Discharge Summary ---
Date of Service July 13, 2022 Admission HPI Per Admitting Provider He is a 61-year-old obese male with significant past medical history of type 2 diabetes, hyperlipidemia, hypertension, GERD and BPH with recent UroLift procedure apparently has been complaining of frequency of urination of about 10 times with dysuria since last night. He underwent UroLift procedure on 12 June and since then he has been on 2 different antibiotics on 3 different occasions for fever and UTI symptoms. Following the procedure he received Bactrim for 3 days and after that he received Macrobid for fever and urinary symptoms for a few days and after that he was given Bactrim for 10 days for ongoing fever and urinary symptoms. He underwent a urine test on Thursday last that grew ESBL and with the recent dysuria and frequency he was advised to come to the emergency room. Denies any fever and or chills or sweating. No nausea no vomiting. No other symptoms Admission Exam Per Admitting Provider Physical Exam: Lying in bed comfortably Constitutional: well developed, well nourished, + ill appearing and + obese Eyes: PERRL, conjunctivae normal, anicteric sclerae ENMT: external ear and nose normal, oropharynx normal Neck: trachea midline, no thyromegaly Respiratory: no respiratory distress Auscultation: lungs clear to auscultation bilaterally; no crackles Cardiovascular: Rate/Rhythm: regular rate and regular rhythm; not tachycardic Heart Sounds: normal S1 and normal S2; no murmur Extremities: no edema Gastrointestinal (Abdomen): Inspection/Auscultation: normal bowel sounds; abdomen not distended Percussion/Palpation: abdomen soft; abdomen nontender Musculoskeletal: No acute arthritis involving any joint Neurologic: normal touch/pain/proprioception and moves all extremities; no focal motor deficits Psychiatric: A+Ox3, euthymic affect Lymphatic: no cervical or axillary lymphadenopathy Principal Diagnosis Complicated UTI, status post recent UroLift procedure on 12 June, type 2 diabetes, prostatic hypertrophy Discharge Exam Lying in bed comfortably Constitutional well developed, well nourished, + ill appearing and + obese Eyes PERRL, conjunctivae normal, anicteric sclerae ENMT external ear and nose normal, oropharynx normal Neck trachea midline, no thyromegaly Respiratory no respiratory distress Auscultation: lungs clear to auscultation bilaterally; no crackles Cardiovascular Rate/Rhythm: regular rate and regular rhythm; not tachycardic Heart Sounds: normal S1 and normal S2; no murmur Extremities: no edema Gastrointestinal (Abdomen) Inspection/Auscultation: normal bowel sounds; abdomen not distended Percussion/Palpation: abdomen soft; abdomen nontender Musculoskeletal no cyanosis or clubbing, extremities motor strength 5/5 Neurologic normal touch/pain/proprioception and moves all extremities; no focal motor deficits Psychiatric A+Ox3, euthymic affect Lymphatic no cervical or axillary lymphadenopathy Discharge Data Allergies Allergy/AdvReac Type Severity Reaction Status Date / Time rofecoxib Allergy Intermediate Hives Verified 07/10/22 17:39 azithromycin Allergy Unknown unsure Verified 07/10/22 17:39 shrimp Allergy Unknown SEAFOOD = Verified 07/10/22 17:39 HIVES Consultations 07/10/22 17:10 ED Decision to Admit Stat 07/10/22 17:59 Consult Urology Routine Ordered Studies 07/11/22 09:02 CT Abd and Pelvis [CT abd pelvis wo con] Urgent Hospital Course (1) Complicated UTI (urinary tract infection): Has had UroLift on 12 June this year- Current complicated UTI may be secondary to a complication of UroLift procedure 3 courses of antibiotic since then with Bactrim and Macrobid Frequency and dysuria since last evening and urine culture grew ESBL taken on of this month No fever and no white count but noted to be tachycardic on arrival Started with intravenous ertapenem and will be continued Urology evaluation while in the hospital given recent UroLift CT of the abdomen pelvis did not show any prostatic abscess Urine is growing gram-negative bacilli likely going to be ESBL We will continue intravenous ertapenem for about a total of 14 days Denies any symptoms and will be discharged home this afternoon to finish the course of antibiotic as planned Examination remains unremarkable (2) Type 2 diabetes mellitus: Has been on Jardiance We will hold it and give him on sliding scale insulin coverage (3) BPH (benign prostatic hyperplasia): Has had UroLift procedure on of this month by Dr. Lake Will get urology evaluation while in the hospital Appreciate urology input and recommendation (4) Dyslipidemia: Continue statin (5) GERD (gastroesophageal reflux disease): Continue PPI (6) Hypertension: Stable DVT prophylaxis Lovenox CODE STATUS Full Plan Discharge this afternoon Total Time Total Time Spent Total Time Spent (In Minutes): 40 minutes Discharge Plan Discharge Items Patient Disposition: Home - Self-Care Reason For Visit: UTI COMPLICATED Discharge Diagnosis: Complicated UTI, status post recent UroLift procedure on 12 June, type 2 diabetes, prostatic hypertrophy Condition on Discharge: Good Activity: Resume your previous activity Non-emergency contact: Primary Care Provider Call non-emergency contact if: you have any medication questions and your symptoms worsen Follow-up/Referrals: Aman Darden PA-C [Primary Care Provider] - (Your doctor's office will call with an appointment within 7 days) Diet: Carb Consistent or DM2 Addtl Attending Provider Instructions: Please take precautions to avoid falls Continue antibiotic as advised and planned-ertapenem 1 g IV daily until 07/24/2022 Keep appointment with your healthcare providers-have your CBC and comprehensive metabolic panel checked during your visit to the primary care provider. Take care of your intravenous line while working Pending Studies at Discharge: No Stand-Alone Forms: My [employer], Smoking Cessation Medications and DC Order Prescriptions: Continued fluticasone propionate 50 mcg/actuation spray,suspension 1 spray INTRANASAL DAILY PRN (Reason: Congestion) finasteride 5 mg tablet 5 mg PO HS rosuvastatin 10 mg tablet 10 mg PO HS tamsulosin 0.4 mg capsule 0.4 mg PO HS omeprazole 20 mg capsule,delayed release(DR/EC) 20 mg PO QAM Jardiance 10 mg tablet 10 mg PO QAM Discharge Orders: Discharge Order (Routine); Ordered 07/12/22 Ordered By: Alex Aguilar Admission Data Admit Date/Time: 07/10/22 17:45 Attending Provider: Alex Aguilar Admit Provider: Alex Aguilar Primary Care Provider: Aman Darden Other Providers: Alex Aguilar ; Mahad Sesay Other Interventions: Discharge Summary Assessment (RN) Last Done: 07/12/22 11:46
== END 2022-07-12 13:58 | disposition home or self-care (01) | DRG 699 ==
LOC: ED 16:07 → 3E 17:45